=== PATIENT | female | born 1970 | race Caucasian/White ===

== ENCOUNTER → 2017-08-08 | Outpatient (CLI) | payer BC ==
--- NOTE | 2017-08-11 10:03 | MM ---
Reason for exam: screening (asymptomatic). Last mammogram was performed 11 years and 3 months ago. History: Family history of breast cancer in mother at age 38 and premenopausal breast cancer in grandmother at age 50. Benign excisional biopsy of the left breast, June 20, 2006. Excisional biopsy of the right breast. Physical Findings: A clinical breast exam by your physician is recommended on an annual basis and results should be correlated with mammographic findings. MG 3D Screening Mammo W/Cad Bilateral CC and MLO view(s) were taken. Prior study comparison: May 13, 2006, CAD bilateral diagnostic mammogram. There are scattered fibroglandular densities. There is no discrete abnormality. No significant changes when compared with prior studies. ASSESSMENT: Negative, BI-RAD 1 RECOMMENDATION: Routine screening mammogram of both breasts in 1 year.
== END | disposition home or self-care (01) ==
LOC: RADMAMWWP 16:32
PROVIDERS: ATTEND Family Medicine
DX: Z12.31 Encounter for screening mammogram for malignant neoplasm of breast (principal)
CPT/HCPCS: 77063; 77067

== ENCOUNTER → 2020-03-09 | Outpatient (CLI) | payer BC | END | disposition home or self-care (01) | LOC: LABWHC1 15:00 | PROVIDERS: ATTEND Emergency Medicine | DX: Z20.828 Contact with and (suspected) exposure to other viral communicable diseases (principal) | CPT/HCPCS: U0003; C9803 ==

== ENCOUNTER → 2020-10-18 | Outpatient (CLI) | payer BC, OTHER ==
--- NOTE | 2020-10-18 19:03 | XR ---
Lumbar spine HISTORY: Trauma and pain 3 views lumbar spine Lumbar vertebral bodies show preserved height, alignment, and bone mineralization is reduced. Calcifi ed gallstones are suspected in the right upper quadrant. Sclerosis is present in the posterior elemen ts consistent with facet arthropathy. Loss of disc height at intervertebral levels is noted and there is vacuum phenomenon present at L1-2, T12-L1. There is multilevel spondylosis. Atherosclerotic vascu lar calcifications present in the aorta iliac distribution. There is a slight spinal curvature. IMPRESSION: Degenerative disc disease, facet arthropathy, osteopenia. Cholelithiasis.
--- NOTE | 2020-10-18 19:05 | XR ---
Right femur and AP pelvis and right hip HISTORY: Trauma and pain 3 views of the pelvis and right hip, frontal lateral views of the right femur on 4 images Bone mineralization, joint spaces and alignment are maintained IMPRESSION: No fracture or dislocation.
== END | disposition home or self-care (01) ==
LOC: RADXRMAIN 18:09
PROVIDERS: ATTEND Emergency Medicine
DX: M51.36 Other intervertebral disc degeneration, lumbar region (principal); M12.88 Other specific arthropathies, not elsewhere classified, other specified site; K80.20 Calculus of gallbladder without cholecystitis without obstruction
CPT/HCPCS: 72100; 73502

== ENCOUNTER → 2020-10-20 | Outpatient (CLI) | payer OTHER ==
--- NOTE | 2020-10-20 09:57 | CT ---
EXAMINATION TYPE: CT brain annieine wo con DATE OF EXAM: 10/20/2020 COMPARISON: None HISTORY: Fall, neck stiffness and HERNANDEZ CT DLP: 1706.8 mGycm, Automated exposure control for dose reduction was used. CONTRAST: None CT of the brain is performed utilizing 3 mm thick sections through the posterior fossa and 3 mm thick sections through the remaining calvarium. Study is performed within 24 hours of arrival to the hospital. No abnormal hyperdensity is present to suggest an acute intracranial hemorrhage. No mass lesion is evident. No acute infarcts are evident. Ventricles and sulci are appropriate for the patient age. Paranasal sinuses and mastoid air cells within the dyona-wf-stdu are clear. IMPRESSIONS: 1. Normal CT brain. CT cervical spine. COMPARISON: None CT of the cervical spine is performed in the axial plane at 2 mm thick sections. Reconstructed image s in the coronal, and sagittal plane are reviewed on the computer. No acute fractures are evident. Vertebral body alignment is straightened. Disc heights are preserved. Vertebral body heights are preserved. No spinal canal stenosis is evident. No neural foraminal stenosis is evident. IMPRESSIONS: 1. Normal CT cervical spine.
--- NOTE | 2020-10-20 10:12 | XR ---
EXAMINATION TYPE: XR thoracic spine complete DATE OF EXAM: 10/20/2020 CLINICAL HISTORY: Fall with mid back pain. TECHNIQUE: Frontal, lateral, and swimmer's view of thoracic spine are obtained. COMPARISON: None. FINDINGS: Mild S-shaped curvature of the thoracolumbar spine. Vertebral body heights and disc space h eights are preserved. Visualized ribs are unremarkable. Multilevel endplate sclerosis and osteophyt osis is noted. IMPRESSION: No acute fracture or dislocation is seen in the thoracic spine. Multilevel disc disease c hanges of the thoracic spine. Mild S-shaped curvature of the thoracolumbar spine.
== END | disposition home or self-care (01) ==
LOC: RADCTMAIN 09:22
PROVIDERS: ATTEND Emergency Medicine
DX: S13.4XXD Sprain of ligaments of cervical spine, subsequent encounter (principal); S23.3XXD Sprain of ligaments of thoracic spine, subsequent encounter; M43.8X5 Other specified deforming dorsopathies, thoracolumbar region; W01.0XXD Fall on same level from slipping, tripping and stumbling without subsequent striking against object, subsequent encounter
CPT/HCPCS: 70450; 72072; 72125

== ENCOUNTER 2021-01-01 07:21 | Day surgery (SDC) | payer BC ==
[2020-12-27 12:58] VITALS: BMI 30.7
[~2021-01-01 07:21] MED LIST: ACETAMINOPHEN TAB 500 MG TAB PO PRN; DEXAMETHASONE SOD PHOSPHATE 4 MG/ML 1 ML VIAL IV ONE; HEPARIN SODIUM,PORCINE/PF 5,000 UNIT/0.5 ML SYRINGE SQ PRN; LACTATED RINGERS 1,000 ML IV SCH; ONDANSETRON 4 MG/2 ML VIAL IVP ONE
[2021-01-01] MEDS ORDERED: LIDOCAINE 1% (10MG/ML) FOR IV START INTRADERMA ONE (08:13)
--- NOTE | 2021-01-01 08:37 | P.GSHP ---
History of Present Illness H&P Date: 01/01/21 Chief Complaint: Right upper quadrant pain Is a 50-year-old female who presents today for laparoscopically cystectomy. Patient liquids were quadrant pain. Choledocholithiasis. Past Medical History Past Medical History: Osteoarthritis (OA) Additional Past Medical History / Comment(s): herniated discs with back pain, states gall stones. History of Any Multi-Drug Resistant Organisms: None Reported Past Surgical History: Breast Surgery, Section, Orthopedic Surgery Additional Past Surgical History / Comment(s): VEIN STRIPPING,EXPLORATORY LAPAROTOMY,CARPAL TUNNEL RELEASE-RIGHT WRIST, RIGHT KNEE ARTHROSCOPY, SALVATORE BREAST TUMORS. Past Anesthesia/Blood Transfusion Reactions: No Reported Reaction Past Psychological History: Anxiety Smoking Status: Current every day smoker, Heavy tobacco smoker Past Alcohol Use History: None Reported Additional Past Alcohol Use History / Comment(s): SMOKES 1 1/2 PPD, STARTED SMOKING AGE 11 Past Drug Use History: None Reported - Past Family History Mother Family Medical History: Cancer Additional Family Medical History / Comment(s): BREAST CANCER Sister(s) Family Medical History: Cancer Additional Family Medical History / Comment(s): BREAST CANCER Father Family Medical History: Cancer Additional Family Medical History / Comment(s): PANCREATIC CANCER / LUNG Medications and Allergies Home Medications Medication Instructions Recorded Confirmed Type Amitriptyline HCl [Elavil] 20 mg PO HS 12/27/20 12/27/20 History DULoxetine HCL [Cymbalta] 60 mg PO HS 12/27/20 12/27/20 History Lisdexamfetamine Dimesylate 60 mg PO QAM 12/27/20 01/01/21 History [Vyvanse] Melatonin 10 mg PO DAILY 12/27/20 01/01/21 History Pramipexole [Mirapex] 0.25 mg PO HS 12/27/20 12/27/20 History Pregabalin [Lyrica] 150 mg PO BID 12/27/20 12/27/20 History Rosuvastatin [Crestor] 10 mg PO HS 12/27/20 12/27/20 History Topiramate [Topamax] 50 mg PO HS 12/27/20 12/27/20 History Vitamin B-12 (Unknown Dose) 1 tab PO DAILY 12/27/20 History Allergies Allergy/AdvReac Type Severity Reaction Status Date / Time No Known Allergies Allergy Verified 01/01/21 07:36 Surgical - Exam Vital Signs Temp Pulse Resp BP Pulse Ox 97.3 F L 68 16 115/63 99 01/01/21 07:40 01/01/21 07:40 01/01/21 07:40 01/01/21 07:40 01/01/21 07:40 - General well developed, well nourished, no distress - Eyes PERRL - ENT normal pinna - Neck no masses - Respiratory normal expansion - Cardiovascular Rhythm: regular - Abdomen Abdomen: soft, non tender Assessment and Plan Assessment: Right quadrant pain Cholelithiasis We'll perform laparoscopic cholecystectomy
[2021-01-01] MEDS ORDERED: NEOSTIGMINE 1 MG/ML 10 ML VIAL ONE (08:47)
[2021-01-01] MEDS ORDERED: GLYCOPYRROLATE 0.2 MG/ML 2 ML VIAL ONE (08:47)
[2021-01-01] MEDS ORDERED: SUCCINYLCHOLINE CHLORIDE 100 MG/5 ML SYR IV ONE (08:47)
[2021-01-01] MEDS ORDERED: ROCURONIUM 10 MG/ML (5 ML VIAL) IV ONE (08:47)
[2021-01-01] MEDS ORDERED: fentaNYL (PF) 50 MCG/ML 2 ML AMP ONE (08:47)
[2021-01-01] MEDS ORDERED: PROPOFOL 10 MG/ML 20 ML VIAL IV ONE (08:47)
[2021-01-01] MEDS ORDERED: MIDAZOLAM 2 MG/2 ML VIAL ONE (08:47)
[2021-01-01] MEDS ORDERED: BUPIVACAINE (PF) 0.5% 30 ML VIAL SQ ONE (08:56)
[2021-01-01] MEDS ORDERED: LACTATED RINGERS 1,000 ML IV ONE (09:32)
--- NOTE | 2021-01-01 09:40 | P.OP ---
Date of Procedure: 01/01/21 Preoperative Diagnosis: Cholelithiasis Postoperative Diagnosis: Cholelithiasis Procedure(s) Performed: Laparoscopic cholecystectomy Anesthesia: ELIER Surgeon: Jesse Kebede Pathology: other (Gallbladder) Condition: stable Disposition: PACU Description of Procedure: The patient was placed on the operating table. The patient received a general endotracheal tube anesthesia. The patients abdomen was prepped and draped in the usual sterile fashion. Through an infraumbilical stab incision, the fascia of the anterior abdominal wall was grasped with a pair of Kochers and then the Veress needle was placed in the peritoneal cavity. Position of the Veress needle was confirmed with positive drop test. The abdomen was then insufflated. After adequate insufflation, the 10 mm trocar was placed in the peritoneal cavity. Following this the laparoscope was placed in the peritoneal cavity. The patient was placed in the head-up, right side up position and then a 5 mm trocar was placed in the right lateral and right subcostal position under direct visualization. A 8 mm trocar was placed in the epigastric position. The gallbladder was grasped in the fundus and infundibulum. Traction on the gallbladder was placed in the lateral and the cephalad positions. The triangle of Calot was visualized.. The cystic duct was bluntly dissected until the union of the cystic duct and common bile duct was seen. A critical view of safety was achieved. The cystic duct was then di vided and sealed with the Harmonic scissors. A PDS Endoloop was then placed throughout the cystic duct stump. The cystic artery divided and sealed with the Harmonic scissors. The gallbladder was then removed from the liver bed using Harmonic scissors. The gallbladder was then extracted through the epigastric port site. Operative field was checked for any bleeding spots and Harmonic scissors was used to coagulate the liver bed. The abdomen was irrigated. The trocars were removed. The skin was closed using interrupted 3-0 Vicryl suture. Dermabond dressing were applied. The patient tolerated the procedure well.
[2021-01-01 09:48] VITALS: TEMP 97.2
[2021-01-01] MEDS: HYDROmorphone 0.5 MG/0.5 ML SYRINGE IVP PRN ×3 (10:11→10:39)
[2021-01-01] MEDS: fentaNYL (PF) 50 MCG/ML 2 ML AMP IVP ONE ×2 (10:26→10:33)
[2021-01-01 10:50] VITALS: RESP 16
[2021-01-01 11:28] VITALS: BP 129/86
[2021-01-01 12:02] VITALS: PULSE 69
== END 2021-01-01 13:53 | disposition home or self-care (01) ==
LOC: OR 07:21
PROVIDERS: ATTEND Surgery
DX: K80.10 Calculus of gallbladder with chronic cholecystitis without obstruction (principal); M19.90 Unspecified osteoarthritis, unspecified site; F41.9 Anxiety disorder, unspecified; F17.210 Nicotine dependence, cigarettes, uncomplicated; M51.25 Other intervertebral disc displacement, thoracolumbar region; Z79.899 Other long term (current) drug therapy
CPT/HCPCS: 47562; 88304; J2250; J1100; J2710; J0690; J2405; J3010; J0330; J2704; J1170; J1644

== ENCOUNTER 2021-01-03 20:15 | Inpatient (IN) | payer BC ==
[2021-01-03] MEDS ORDERED: SODIUM CHLORIDE 0.9% 1,000 ML IV STA ×2 (20:33)
[2021-01-03] MEDS ORDERED: fentaNYL (PF) 50 MCG/ML 2 ML AMP IV STA (20:34)
[2021-01-03] MEDS ORDERED: LORazepam 2 MG/ML INJ IV STA (20:35)
--- NOTE | 2021-01-03 20:37 | ED ---
Abdominal Pain HPI - General Chief Complaint: Abdominal Pain Stated Complaint: ABD Pain Time Seen by Provider: 01/03/21 20:27 Source: patient, EMS, RN notes reviewed, old records reviewed Mode of arrival: EMS - History of Present Illness Initial Comments: 50-year-old female who presents by EMS with complaints of severe sharp right upper quadrant pain it radiates to her shoulder and into her chest. She states she had her all U2 days ago the pain started slightly yesterday but was very bad today and got progressively worse. It gets worse with movement and deep breathing she denies any fevers chills nausea vomiting sweats or other symptoms she was brought in by EMS and given a total of 10 mg of morphine the patient states she had no relief. MD Complaint: abdominal pain, other - Related Data Home Medications Medication Instructions Recorded Confirmed Amitriptyline HCl [Elavil] 20 mg PO HS 12/27/20 01/03/21 DULoxetine HCL [Cymbalta] 60 mg PO HS 12/27/20 01/03/21 Lisdexamfetamine Dimesylate 60 mg PO DAILY 12/27/20 01/03/21 [Vyvanse] Melatonin 10 mg PO HS PRN 12/27/20 01/03/21 Pramipexole [Mirapex] 0.25 mg PO HS 12/27/20 01/03/21 Pregabalin [Lyrica] 150 mg PO BID 12/27/20 01/03/21 Rosuvastatin [Crestor] 10 mg PO HS 12/27/20 01/03/21 Topiramate [Topamax] 150 mg PO HS 12/27/20 01/03/21 Previous Rx's Medication Instructions Recorded Acetaminophen Tab [Tylenol] 650 mg PO Q6H #30 tab 01/01/21 Docusate [Colace] 100 mg PO BID #20 capsule 01/01/21 Ibuprofen [Motrin] 600 mg PO Q6HR PRN #40 tab 01/01/21 oxyCODONE HCL [OxyIR] 5 mg PO Q6H PRN 3 Days #10 tab 01/01/21 Allergies Allergy/AdvReac Type Severity Reaction Status Date / Time No Known Allergies Allergy Verified 01/03/21 21:28 Review of Systems ROS Statement: Those systems with pertinent positive or pertinent negative responses have been documented in the HPI. ROS Other: All systems not noted in ROS Statement are negative. Past Medical History Past Medical History: Osteoarthritis (OA) Additional Past Medical History / Comment(s): herniated discs with back pain, states gall stones. History of Any Multi-Drug Resistant Organisms: None Reported Past Surgical History: Breast Surgery, Section, Cholecystectomy, Orthopedic Surgery Additional Past Surgical History / Comment(s): VEIN STRIPPING,EXPLORATORY LAPAROTOMY,CARPAL TUNNEL RELEASE-RIGHT WRIST, RIGHT KNEE ARTHROSCOPY, SALVATORE BREAST TUMORS. Past Anesthesia/Blood Transfusion Reactions: No Reported Reaction Past Psychological History: Anxiety Smoking Status: Current every day smoker, Heavy tobacco smoker Past Alcohol Use History: None Reported Past Drug Use History: None Reported - Past Family History Mother Family Medical History: Cancer Additional Family Medical History / Comment(s): BREAST CANCER Sister(s) Family Medical History: Cancer Additional Family Medical History / Comment(s): BREAST CANCER Father Family Medical History: Cancer Additional Family Medical History / Comment(s): PANCREATIC CANCER / LUNG General Exam - General Exam Comments Initial Comments: Well-developed obese female who is awake alert oriented 3 General appearance: alert, anxious, in distress Head exam: Present: atraumatic, normocephalic, normal inspection Eye exam: Present: normal appearance, PERRL, EOMI. Absent: scleral icterus, conjunctival injection, periorbital swelling ENT exam: Present: mucous membranes dry Neck exam: Present: normal inspection. Absent: tenderness, meningismus, lymphadenopathy Respiratory exam: Present: normal lung sounds bilaterally, chest wall tenderness, other (Tachypnea). Absent: respiratory distress, wheezes, rales, rhonchi, stridor Cardiovascular Exam: Present: regular rate, normal rhythm, normal heart sounds. Absent: systolic murmur, diastolic murmur, rubs, gallop, clicks GI/Abdominal exam: Present: soft, distended, tenderness, normal bowel sounds, other (Voluntary guarding). Absent: guarding, rebound, rigid, bruit, pulsatile mass Rectal exam: Present: deferred Extremities exam: Present: normal inspection, full ROM, normal capillary refill. Absent: tenderness, pedal edema, joint swelling, calf tenderness Back exam: Present: normal inspection Neurological exam: Present: alert, oriented X3, CN II-XII intact Psychiatric exam: Present: normal affect, anxious Skin exam: Present: warm, dry, intact, normal color. Absent: rash Course Vital Signs 01/03/21 01/03/21 01/03/21 20:17 20:50 21:56 Temperature 99.0 F Pulse Rate 76 77 71 Respiratory 26 H 20 20 Rate Blood Pressure 116/72 114/71 114/71 O2 Sat by Pulse 96 97 95 Oximetry Medical Decision Making - Medical Decision Making Patient did get some mild relief from her pain thus far. I did discuss the findings with patient family members as well as with Nenita Clinton covering for Dr. Aponte. Patient be admitted for treatment of bilateral lower lobe pneumonia Dr. Perea will be consulted. - Lab Data Result diagrams: 01/03/21 20:36 01/03/21 20:36 Lab Results 01/03/21 01/03/21 01/03/21 Range/Units 20:36 20:36 20:36 WBC 12.2 H (3.8-10.6) k/uL RBC 3.61 L (3.80-5.40) m/uL Hgb 11.8 (11.4-16.0) gm/dL Hct 36.1 (34.0-46.0) % MCV 100.0 (80.0-100.0) fL MCH 32.8 (25.0-35.0) pg MCHC 32.7 (31.0-37.0) g/dL RDW 13.0 (11.5-15.5) % Plt Count 187 (150-450) k/uL MPV 7.3 Neutrophils % 83 % Lymphocytes % 10 % Monocytes % 5 % Eosinophils % 1 % Basophils % 0 % Neutrophils # 10.1 H (1.3-7.7) k/uL Lymphocytes # 1.2 (1.0-4.8) k/uL Monocytes # 0.6 (0-1.0) k/uL Eosinophils # 0.1 (0-0.7) k/uL Basophils # 0.0 (0-0.2) k/uL PT 9.4 (9.0-12.0) sec INR 0.9 (<1.2) APTT 24.2 (22.0-30.0) sec Sodium 133 L (137-145) mmol/L Potassium 4.0 (3.5-5.1) mmol/L Chloride 106 (98-107) mmol/L Carbon Dioxide 21 L (22-30) mmol/L Anion Gap 6 mmol/L BUN 11 (7-17) mg/dL Creatinine 0.72 (0.52-1.04) mg/dL Est GFR (CKD-EPI)AfAm >90 (>60 ml/min/1.73 sqM) Est GFR (CKD-EPI)NonAf >90 (>60 ml/min/1.73 sqM) Glucose 114 H (74-99) mg/dL Plasma Lactic Acid Jacob (0.7-2.0) mmol/L Calcium 8.4 (8.4-10.2) mg/dL Total Bilirubin 0.6 (0.2-1.3) mg/dL AST 46 H (14-36) U/L ALT 56 H (4-34) U/L Alkaline Phosphatase 107 (38-126) U/L Creatine Kinase 73 (30-135) U/L Troponin I (0.000-0.034) ng/mL Total Protein 5.7 L (6.3-8.2) g/dL Albumin 3.4 L (3.5-5.0) g/dL Amylase 40 (30-110) U/L Lipase 44 (23-300) U/L 01/03/21 01/03/21 Range/Units 20:36 20:36 WBC (3.8-10.6) k/uL RBC (3.80-5.40) m/uL Hgb (11.4-16.0) gm/dL Hct (34.0-46.0) % MCV (80.0-100.0) fL MCH (25.0-35.0) pg MCHC (31.0-37.0) g/dL RDW (11.5-15.5) % Plt Count (150-450) k/uL MPV Neutrophils % % Lymphocytes % % Monocytes % % Eosinophils % % Basophils % % Neutrophils # (1.3-7.7) k/uL Lymphocytes # (1.0-4.8) k/uL Monocytes # (0-1.0) k/uL Eosinophils # (0-0.7) k/uL Basophils # (0-0.2) k/uL PT (9.0-12.0) sec INR (<1.2) APTT (22.0-30.0) sec Sodium (137-145) mmol/L Potassium (3.5-5.1) mmol/L Chloride (98-107) mmol/L Carbon Dioxide (22-30) mmol/L Anion Gap mmol/L BUN (7-17) mg/dL Creatinine (0.52-1.04) mg/dL Est GFR (CKD-EPI)AfAm (>60 ml/min/1.73 sqM) Est GFR (CKD-EPI)NonAf (>60 ml/min/1.73 sqM) Glucose (74-99) mg/dL Plasma Lactic Acid Jacob 1.5 (0.7-2.0) mmol/L Calcium (8.4-10.2) mg/dL Total Bilirubin (0.2-1.3) mg/dL AST (14-36) U/L ALT (4-34) U/L Alkaline Phosphatase (38-126) U/L Creatine Kinase (30-135) U/L Troponin I <0.012 (0.000-0.034) ng/mL Total Protein (6.3-8.2) g/dL Albumin (3.5-5.0) g/dL Amylase (30-110) U/L Lipase (23-300) U/L - EKG Data -: EKG Interpreted by Me EKG shows normal: sinus rhythm EKG Comments: Sinus rhythm a 77 appear 124 QRS 78 QT since QTC 380/439 low-voltage noted no acute ST-T wave changes - Radiology Data Radiology results: report reviewed (Imaging reviewed no evidence of any obst ruction evidence of bilateral lower lobe infiltrates.), image reviewed Disposition Clinical Impression: Bilateral pneumonia, Abdominal pain, Chest pain, Recurrent upper abdominal pain with history of cholecystectomy, Febrile illness, acute Disposition: ADMITTED IP TO THIS [facility] Condition: Fair Referrals: Jillian Torres DO [Primary Care Provider] - 1-2 days
[2021-01-03 20:48] LABS: Basophils % (A) 0 %; Eosinophils # (A) 0.1 k/uL (0-0.7); Eosinophils % (A) 1 %; HCT 36.1 % (34.0-46.0); HGB 11.8 gm/dL (11.4-16.0); Lymphocytes # (A) 1.2 k/uL (1.0-4.8); Lymphocytes % (A) 10 %; MCH 32.8 pg (25.0-35.0); MCHC 32.7 g/dL (31.0-37.0); Mean Platelet Volume 7.3; Monocytes # (A) 0.6 k/uL (0-1.0); Monocytes % (A) 5 %; Neutrophils # (A) 10.1 k/uL (1.3-7.7); Neutrophils % (A) 83 %; Platelet Count 187 k/uL (150-450); RBC 3.61 m/uL (3.80-5.40); WBC 12.2 k/uL (3.8-10.6)
[2021-01-03 20:57] LABS: ALT 56 U/L (4-34); AST 46 U/L (14-36); African American GFR (CKD) >90 (>60 ml/min/1.73 sqM); Albumin 3.4 g/dL (3.5-5.0); Alkaline Phosphatase 107 U/L (38-126); Amylase 40 U/L (30-110); Anion Gap 6 mmol/L; Blood Urea Nitrogen 11 mg/dL (7-17); Calcium 8.4 mg/dL (8.4-10.2); Carbon Dioxide 21 mmol/L (22-30); Chloride 106 mmol/L (98-107); Creatine Kinase 73 U/L (30-135); Glucose 114 mg/dL (74-99); INR 0.9 (<1.2); Lipase 44 U/L (23-300); Non-African American GFR(CKD) >90 (>60 ml/min/1.73 sqM); Partial Thromboplastin Time 24.2 sec (22.0-30.0); Prothrombin Time 9.4 sec (9.0-12.0); Sodium 133 mmol/L (137-145); Total Bilirubin 0.6 mg/dL (0.2-1.3); Total Protein 5.7 g/dL (6.3-8.2)
--- NOTE | 2021-01-03 21:24 | XR ---
EXAMINATION TYPE: XR chest 2V DATE OF EXAM: 01/03/2021 COMPARISON: NONE HISTORY: Abdominal pain TECHNIQUE: 2 views FINDINGS: There is pulmonary interstitial edema. Heart size is normal. There are no hilar masses. Bon y thorax is intact. There is no pleural effusion. IMPRESSION: Moderate pulmonary interstitial infiltrate. Acute pneumonia or heart failure is possible.
--- NOTE | 2021-01-03 21:26 | XR ---
EXAMINATION TYPE: XR KUB DATE OF EXAM: 01/03/2021 COMPARISON: NONE HISTORY: Abdominal pain TECHNIQUE: Supine and upright views FINDINGS: 2 views show no sign of intestinal obstruction or pneumoperitoneum. Fecal pattern is normal . There is no evidence of abdominal mass. There are no pathologic calcifications over the kidneys. IMPRESSION: Nonacute abdomen.
--- NOTE | 2021-01-03 22:08 | CT ---
EXAMINATION TYPE: CT abdomen pelvis w con DATE OF EXAM: 01/03/2021 COMPARISON: None HISTORY: Abdominal pain, non-localized CT DLP: 1568.7 mGycm Automated exposure control for dose reduction was used. CONTRAST: Performed with IV Contrast, patient injected with 100 mL of Isovue 300. There is patchy airspace infiltrate and atelectasis at both lung bases. Heart is borderline enlarged. There is no pericardial effusion. There is no pleural effusion. Liver spleen stomach pancreas appear intact. The bile ducts are not dilated. There is small amount of fluid around the liver. Gallbladder appears absent. There is no adrenal mass. Kidneys show satisfactory contrast opacification. There is no hydronephrosi s. Ureters are not dilated. Delayed images show normal renal excretion. There is no retroperitoneal a denopathy. Bladder distends smoothly. There is no inguinal hernia. There is no evidence of a pelvic m ass. Uterus is anteverted. There is free fluid in the cul-de-sac. Appendix appears normal. There is no mesenteric edema. There is no evidence of free air. The lumbar v ertebra have normal alignment. There is no compression fracture. Posterior elements are intact. Bony pelvis is intact. The hip joints are intact. IMPRESSION: There is mild abdominal ascites. No bowel obstruction. No renal stone or obstruction. Normal appendix . Bilateral lower lobe pneumonia and atelectasis.
[2021-01-03] MEDS ORDERED: KETOROLAC 15 MG/ML 1 ML VIAL IVP STA (22:16)
[2021-01-03] MEDS ORDERED: cefTRIAXone IN SWFI 1,000 MG/10 ML SYRINGE IVP STA (22:52)
[2021-01-03] MEDS ORDERED: PNEUMONIA PROTOCOL UTILIZED 1 EACH MISC PO PRN (22:55)
[2021-01-03] MEDS ORDERED: ONDANSETRON 4 MG/2 ML VIAL IVP PRN (22:59)
[2021-01-03] MEDS ORDERED: AZITHROMYCIN 500 MG in SODIUM CHLORIDE 0.9% 250 ML IVPB ONE (23:00)
[2021-01-03] MEDS: SODIUM CHLORIDE 0.9% 1,000 ML IV SCH (23:27)
[2021-01-04 00:46] LABS: Appearance,Urine Clear (Clear); Bilirubin,Urine Negative (Negative); Blood,Urine Negative (Negative); Color,Urine Yellow; Glucose,Urine (UA) Negative (Negative); Ketones,Urine Negative (Negative); Leukocyte Esterase,Urine Negative (Negative); Nitrite,Urine Negative (Negative); PH, Urine 6.5 (5.0-8.0); Protein,Urine Negative (Negative); Specific Gravity,Urine 1.028 (1.001-1.035); Urobilinogen,Urine <2.0 mg/dL (<2.0)
[2021-01-04] MEDS: HYDROmorphone 1 MG/ML 1 ML SYRINGE IVP PRN ×4 (02:04→19:58)
[2021-01-04] MEDS ORDERED: ACETAMINOPHEN TAB 500 MG TAB PO STA (05:37)
--- NOTE | 2021-01-04 08:05 | XR ---
EXAMINATION TYPE: XR chest 1V DATE OF EXAM: 01/04/2021 COMPARISON: 01/03/2021 INDICATION: Pneumonia TECHNIQUE: Single frontal view of the chest is obtained. FINDINGS: The heart size is normal. The pulmonary vasculature is prominent. Diffuse increased lung markings are present greater at the right base. Findings are stable. IMPRESSION: 1. Stable Increased lung markings bilaterally. Correlate for pneumonia. Continued follow-up is recomm ended
[2021-01-04] MEDS: SODIUM CHLORIDE 0.9% 1,000 ML IV SCH ×2 (11:12→19:53)
[2021-01-04] MEDS: PANTOPRAZOLE 40 MG/10 ML VIAL IVP SCH ×2 (11:13→21:45)
[2021-01-04] MEDS ORDERED: bisacodyL 10 MG SUPP RECTAL STA (12:41)
--- NOTE | 2021-01-04 14:15 | P.GSCN ---
History of Present Illness Consult date: 01/04/21 History of present illness: CHIEF COMPLAINT: Epigastric abdominal pain HISTORY OF PRESENT ILLNESS: This is a 50-year-old female who recently had outpatient laparoscopic cholecystectomy this past 01/01/[address] rooney. Patient was discharged home in stable condition. Patient reports since surgery she has developed severe epigastric abdominal pain as well as chest pain, cough and shortness of breath. Patient has not had any flatus or BM since surgery. She denies any nausea or vomiting. She is a smoker. Patient does report that the pain does radiate up into her right shoulder. She had a CAT scan completed showing mild abdominal ascites. No bowel obstruction. No renal stone or obstruction. Normal appendix. Bilateral lower lobe pneumonia and atelectasis. Patient had fever of 101.3 on admission as well as a white count elevated at 12.2. Patient is been started on antibiotics. Surgical consult placed due to recent cholecystectomy. Patient seen and examined with Dr. rooney PAST MEDICAL HISTORY: See list. PAST SURGICAL HISTORY: See list. MEDICATIONS: See list. ALLERGIES: See list. SOCIAL HISTORY: No illicit drug use. REVIEW OF SYSTEMS: CONSTITUTIONAL: Denies fever or chills. HEENT: Denies blurred vision, vision changes, or eye pain. Denies hemoptysis CARDIOVASCULAR: Denies chest pain or pressure. RESPIRATORY: No shortness of breath. GASTROINTESTINAL: See HPI for pertinent findings HEMATOLOGIC: Denies bleeding disorders. GENITOURINARY: Denies any blood in urine or increased urinary frequency. SKIN: Denies pruitis. Denies rash. PHYSICAL EXAM: VITAL SIGNS: Reviewed GENERAL: Well-developed in no acute distress. HEENT: No sclera icterus. Extraocular movements grossly intact. Moist buccal mucosa. Head is atraumatic, normocephalic. No nasal drainage. ABDOMEN: Soft. Nondistended. Tenderness to palpation epigastric area. Her incision sites are clean dry and intact NEUROLOGIC: Alert and oriented. Cranial nerves II through XII grossly intact. LABORATORY DATA: WBC 12.2 hemoglobin 11.8 platelets 187 INR 0.9 sodium 133 creatinine 0.7 to lactic 1.5 total bili 0.6 AST 46 ALT 56 alk phos 107 Lipase 44 UA negative Troponin negative EKG normal sinus rhythm IMAGING: CAT scan as stated above Chest x-ray stable increased lung markings bilaterally. Correlate for pneumonia ASSESSMENT: 1. Epigastric abdominal pain that radiates into the chest and right shoulder. Patient has not had any flatus or BM. Symptoms could be related to gas pain as well as due to her cough from her pneumonia 2. Pneumonia PLAN: -No surgical intervention planned -Add Dulcolax suppository -Continue stool softener -Mylicon gas drops -Incentive spirometer ordered -Continue antibiotics for pneumonia Thank you for this consultation Physician Dam Operator note has been reviewed by physician. Signing provider agrees with the documented findings, assessment, and plan of care. Past Medical History Past Medical History: Osteoarthritis (OA) Additional Past Medical History / Comment(s): herniated discs with back pain, states gall stones. History of Any Multi-Drug Resistant Organisms: None Reported Past Surgical History: Breast Surgery, Section, Cholecystectomy, Orthopedic Surgery Additional Past Surgical History / Comment(s): VEIN STRIPPING,EXPLORATORY LAPAROTOMY,CARPAL TUNNEL RELEASE-RIGHT WRIST, RIGHT KNEE ARTHROSCOPY, SALVATORE BREAST TUMORS. Past Anesthesia/Blood Transfusion Reactions: No Reported Reaction Past Psychological History: Anxiety Smoking Status: Current every day smoker, Heavy tobacco smoker Past Alcohol Use History: None Reported Past Drug Use History: None Reported - Past Family History Mother Family Medical History: Cancer Additional Family Medical History / Comment(s): BREAST CANCER Sister(s) Family Medical History: Cancer Additional Family Medical History / Comment(s): BREAST CANCER Father Family Medical History: Cancer Additional Family Medical History / Comment(s): PANCREATIC CANCER / LUNG Medications and Allergies Home Medications Medication Instructions Recorded Confirmed Type Amitriptyline HCl [Elavil] 20 mg PO HS 12/27/20 01/03/21 History DULoxetine HCL [Cymbalta] 60 mg PO HS 12/27/20 01/03/21 History Lisdexamfetamine Dimesylate 60 mg PO DAILY 12/27/20 01/03/21 History [Vyvanse] Melatonin 10 mg PO HS PRN 12/27/20 01/03/21 History Pramipexole [Mirapex] 0.25 mg PO HS 12/27/20 01/03/21 History Pregabalin [Lyrica] 150 mg PO BID 12/27/20 01/03/21 History Rosuvastatin [Crestor] 10 mg PO HS 12/27/20 01/03/21 History Topiramate [Topamax] 150 mg PO HS 12/27/20 01/03/21 History Acetaminophen Tab [Tylenol] 650 mg PO Q6H #30 tab 01/01/21 01/03/21 Rx Docusate [Colace] 100 mg PO BID #20 capsule 01/01/21 01/03/21 Rx Ibuprofen [Motrin] 600 mg PO Q6HR PRN #40 tab 01/01/21 01/03/21 Rx oxyCODONE HCL [OxyIR] 5 mg PO Q6H PRN 3 Days #10 tab 01/01/21 01/03/21 Rx Allergies Allergy/AdvReac Type Severity Reaction Status Date / Time No Known Allergies Allergy Verified 01/03/21 21:28 Surgical - Exam Vital Signs Temp Pulse Resp BP Pulse Ox 99.0 F 76 26 H 116/72 96 01/03/21 20:17 01/03/21 20:17 01/03/21 20:17 01/03/21 20:17 01/03/21 20:17 Results - Labs 01/03/21 20:36 01/03/21 20:36 Abnormal Lab Results - Last 24 Hours (Table) 01/03/21 01/03/21 Range/Units 20:36 20:36 WBC 12.2 H (3.8-10.6) k/uL RBC 3.61 L (3.80-5.40) m/uL Neutrophils # 10.1 H (1.3-7.7) k/uL Sodium 133 L (137-145) mmol/L Carbon Dioxide 21 L (22-30) mmol/L Glucose 114 H (74-99) mg/dL AST 46 H (14-36) U/L ALT 56 H (4-34) U/L Total Protein 5.7 L (6.3-8.2) g/dL Albumin 3.4 L (3.5-5.0) g/dL Diabetes panel 01/03/21 Range/Units 20:36 Sodium 133 L (137-145) mmol/L Potassium 4.0 (3.5-5.1) mmol/L Chloride 106 (98-107) mmol/L Carbon Dioxide 21 L (22-30) mmol/L BUN 11 (7-17) mg/dL Creatinine 0.72 (0.52-1.04) mg/dL Glucose 114 H (74-99) mg/dL Calcium 8.4 (8.4-10.2) mg/dL AST 46 H (14-36) U/L ALT 56 H (4-34) U/L Alkaline Phosphatase 107 (38-126) U/L Total Protein 5.7 L (6.3-8.2) g/dL Albumin 3.4 L (3.5-5.0) g/dL Calcium panel 01/03/21 Range/Units 20:36 Calcium 8.4 (8.4-10.2) mg/dL Albumin 3.4 L (3.5-5.0) g/dL Pituitary panel 01/03/21 Range/Units 20:36 Sodium 133 L (137-145) mmol/L Potassium 4.0 (3.5-5.1) mmol/L Chloride 106 (98-107) mmol/L Carbon Dioxide 21 L (22-30) mmol/L BUN 11 (7-17) mg/dL Creatinine 0.72 (0.52-1.04) mg/dL Glucose 114 H (74-99) mg/dL Calcium 8.4 (8.4-10.2) mg/dL Adrenal panel 01/03/21 Range/Units 20:36 Sodium 133 L (137-145) mmol/L Potassium 4.0 (3.5-5.1) mmol/L Chloride 106 (98-107) mmol/L Carbon Dioxide 21 L (22-30) mmol/L BUN 11 (7-17) mg/dL Creatinine 0.72 (0.52-1.04) mg/dL Glucose 114 H (74-99) mg/dL Calcium 8.4 (8.4-10.2) mg/dL Total Bilirubin 0.6 (0.2-1.3) mg/dL AST 46 H (14-36) U/L ALT 56 H (4-34) U/L Alkaline Phosphatase 107 (38-126) U/L Total Protein 5.7 L (6.3-8.2) g/dL Albumin 3.4 L (3.5-5.0) g/dL
[2021-01-04] MEDS ORDERED: IBUPROFEN 600 MG TAB PO PRN (15:01)
[2021-01-04] MEDS ORDERED: PRAMIPEXOLE 0.25 MG TAB PO SCH (15:01)
[2021-01-04] MEDS ORDERED: MELATONIN 5 MG TABLET PO PRN (15:01)
[2021-01-04] MEDS ORDERED: PRAMIPEXOLE 0.25 MG TAB PO STA (15:56)
[2021-01-04] MEDS ORDERED: PREGABALIN 75 MG CAP PO STA (15:57)
[2021-01-04] MEDS: SIMETHICONE 40 MG/0.6 ML DROPS 2,000 MG/30 ML BOTTLE PO SCH ×3 (16:17→23:15)
[2021-01-04] MEDS: HEPARIN SODIUM,PORCINE/PF 5,000 UNIT/0.5 ML SYRINGE SQ SCH (16:18)
[2021-01-04] MEDS: ACETAMINOPHEN TAB 325 MG TAB PO SCH ×2 (16:54→21:51)
[2021-01-04] MEDS: KETOROLAC 15 MG/ML 1 ML VIAL IVP SCH (19:57)
[2021-01-04] MEDS: TOPIRAMATE 100 MG TAB PO SCH (21:48)
[2021-01-04] MEDS: ATORVASTATIN 20 MG TAB PO SCH (21:50)
[2021-01-04] MEDS: PREGABALIN 75 MG CAP PO SCH (21:50)
[2021-01-04] MEDS: DULoxetine HCL 60 MG CAPSULE.DR PO SCH (21:51)
[2021-01-04] MEDS: PRAMIPEXOLE 0.25 MG TAB PO SCH (21:51)
[2021-01-04] MEDS: DOCUSATE 100 MG CAP PO SCH (21:51)
--- NOTE | 2021-01-04 22:04 | P.HPIM ---
History of Present Illness H&P Date: 01/04/21 Chief Complaint: Right upper quadrant abdominal pain. Patient is a 50-year-old female with a known history of osteoarthritis, chronic back pain with herniated disc, anxiety, heavy tobacco smoker and chronic pain, restless leg syndrome and other multiple medical problems who recently had cholecystectomy on 01/01/2021. Patient states that she has been having sharp pain right lower chest and in the epigastric region radiating to her shoulder and her chest. Patient states that her symptoms began after having surgery. And for the past 2 days progressively getting worse. Gets worse with movement and deep breathing. Patient is unable to take deep breaths due to pain and is getting up. Denies any fever or chills. Patient states that she was sweating at home. On admission T-max was 101.3. Denies any complaints of headache or dizziness or lightheadedness. No chest pain. No neck stiffness. Denies any leg swelling. Denied any discomfort at the surgical site. Chest x-ray showed moderate pulmonary interstitial infiltrate. Acute pneumonia or heart failure is possible. KUB x-ray showed nonacute abdomen. CT of the abdomen pelvis showed there is mild abdominal ascites. No bowel obstruction. No renal stone or obstruction. Normal appendix. Bilateral lower lobe pneumonia and atelectasis. Laboratory data showed WBC 12.2 hemoglobin 11.8 and platelets 187 Sodium 133 potassium 4.0 chloride 106 bicarb is 21 BUN 11 and creatinine 0.72 AST 46 ALT 56 alk phos 107 troponin x1 - and lipase is 44 Urinalysis is negative for infection COVID-19 PCR not detected. Review of Systems Constitutional: Patient does have subjective fevers and sweating. Generalized weakness and malaise.. Abdomen: Patient denied nausea vomiting and diarrhea and abdominal pain. Cardiovascular: Patient denies any chest pain or short of breath no palpi tations. Respiratory: Patient does have cough without sputum production. Pleuritic chest pain. Minimal shortness of breath. Neurologic: Patient denied any numbness or tingling headache. Musculoskeletal: Patient denies any complaints of joint swelling or deformity. Skin: Negative Psychiatric: Negative Endocrine: No heat or cold intolerance. No recent weight gain. Genitourinary: No dysuria or hematuria. All other 14 point ROS negative except the above Past Medical History Past Medical History: Osteoarthritis (OA) Additional Past Medical History / Comment(s): herniated discs with back pain, states gall stones. History of Any Multi-Drug Resistant Organisms: None Reported Past Surgical History: Breast Surgery, Section, Cholecystectomy, Orthopedic Surgery Additional Past Surgical History / Comment(s): VEIN STRIPPING,EXPLORATORY LAPAROTOMY,CARPAL TUNNEL RELEASE-RIGHT WRIST, RIGHT KNEE ARTHROSCOPY, SALVATORE BREAST TUMORS. Past Anesthesia/Blood Transfusion Reactions: No Reported Reaction Past Psychological History: Anxiety Smoking Status: Current every day smoker, Heavy tobacco smoker Past Alcohol Use History: None Reported Past Drug Use History: None Reported - Past Family History Mother Family Medical History: Cancer Additional Family Medical History / Comment(s): BREAST CANCER Sister(s) Family Medical History: Cancer Additional Family Medical History / Comment(s): BREAST CANCER Father Family Medical History: Cancer Additional Family Medical History / Comment(s): PANCREATIC CANCER / LUNG Medications and Allergies Home Medications Medication Instructions Recorded Confirmed Type Amitriptyline HCl [Elavil] 20 mg PO HS 12/27/20 01/03/21 History DULoxetine HCL [Cymbalta] 60 mg PO HS 12/27/20 01/03/21 History Lisdexamfetamine Dimesylate 60 mg PO DAILY 12/27/20 01/03/21 History [Vyvanse] Melatonin 10 mg PO HS PRN 12/27/20 01/03/21 History Pramipexole [Mirapex] 0.25 mg PO HS 12/27/20 01/03/21 History Pregabalin [Lyrica] 150 mg PO BID 12/27/20 01/03/21 History Rosuvastatin [Crestor] 10 mg PO HS 12/27/20 01/03/21 History Topiramate [Topamax] 150 mg PO HS 12/27/20 01/03/21 History Acetaminophen Tab [Tylenol] 650 mg PO Q6H #30 tab 01/01/21 01/03/21 Rx Docusate [Colace] 100 mg PO BID #20 capsule 01/01/21 01/03/21 Rx Ibuprofen [Motrin] 600 mg PO Q6HR PRN #40 tab 01/01/21 01/03/21 Rx oxyCODONE HCL [OxyIR] 5 mg PO Q6H PRN 3 Days #10 tab 01/01/21 01/03/21 Rx Allergies Allergy/AdvReac Type Severity Reaction Status Date / Time No Known Allergies Allergy Verified 01/03/21 21:28 Physical Exam Vitals: Vital Signs Temp Pulse Resp BP Pulse Ox 01/04/21 11:14 99.2 F 82 16 97/64 100 01/04/21 07:11 99.1 F 01/04/21 05:59 89 20 110/60 98 01/04/21 05:00 101.3 F H 01/04/21 02:02 78 20 110/77 95 01/03/21 23:27 73 20 108/82 96 01/03/21 22:51 20 01/03/21 21:56 71 20 114/71 95 01/03/21 20:50 77 20 114/71 97 01/03/21 20:17 99.0 F 76 26 H 116/72 96 Intake and Output 01/03/21 01/04/21 01/04/21 22:59 06:59 14:59 Other: Weight 92.079 kg PHYSICAL EXAMINATION: Patient is lying in the bed comfortably, no acute distress, awake alert and oriented. anxious. HEENT: Normocephalic. Neck is supple. Pupils reactive. Nostrils clear. Oral cavi ty is moist. Neck reveals no JVD, carotid bruits, or thyromegaly. CHEST EXAMINATION: Trachea is central. Symmetrical expansion. Right basilar crackles. Left basilar diminished sounds. No wheezing or rhonchi. CARDIAC: Normal S1, S2 with no gallops. No murmurs ABDOMEN: Soft. Bowel sounds normal. No organomegaly. No abdominal bruits. Extremities: reveal no edema. No clubbing or cyanosis Neurologically awake, alert, oriented x3 with well-coordinated movements. No focal deficits noted Skin: No rash or skin lesions. Psychiatric: Coperative. Nonsuicidal Musculoskeletal: No joint swelling or deformity. Normal range of motion. Results CBC & Chem 7: 01/03/21 20:36 01/03/21 20:36 Labs: Abnormal Lab Results - Last 24 Hours (Table) 01/03/21 01/03/21 Range/Units 20:36 20:36 WBC 12.2 H (3.8-10.6) k/uL RBC 3.61 L (3.80-5.40) m/uL Neutrophils # 10.1 H (1.3-7.7) k/uL Sodium 133 L (137-145) mmol/L Carbon Dioxide 21 L (22-30) mmol/L Glucose 114 H (74-99) mg/dL AST 46 H (14-36) U/L ALT 56 H (4-34) U/L Total Protein 5.7 L (6.3-8.2) g/dL Albumin 3.4 L (3.5-5.0) g/dL Assessment and Plan Assessment: Bilateral lower lobe atelectasis and possible pneumonia. Abdominal pain mainly in the epigastric region radiating to the back and chest. KUB x-ray showed normal bowel gas pattern. Status post cholecystectomy on 01/01/2021. Laparoscopic. Chronic back pain and herniated disc Anxiety Restless leg syndrome Osteoarthritis Heavy tobacco smoker on daily basis DVT prophylaxis Heparin subcu Plan: Patient will be continued on antibiotics in the form of ceftriaxone and azithromycin empirically. Continue with incentive spirometry. Pain management with Toradol IV and continue with stool softeners. General surgery is board. Continue with home medications and continue to follow closely. GI and DVT prophylaxis. Smoking cessation has been counseled extensively.
[2021-01-04] MEDS: AMITRIPTYLINE HCL 10 MG TAB PO SCH (23:08)
[2021-01-04] MEDS: AZITHROMYCIN 500 MG TAB PO SCH (23:08)
[2021-01-05] MEDS: HEPARIN SODIUM,PORCINE/PF 5,000 UNIT/0.5 ML SYRINGE SQ SCH ×3 (01:03→16:10)
[2021-01-05] MEDS: KETOROLAC 15 MG/ML 1 ML VIAL IVP SCH ×4 (01:03→17:36)
[2021-01-05] MEDS: ACETAMINOPHEN TAB 325 MG TAB PO SCH ×4 (03:24→20:01)
[2021-01-05 05:52] LABS: ALT 46 U/L (4-34); AST 31 U/L (14-36); African American GFR (CKD) >90 (>60 ml/min/1.73 sqM); Albumin 2.6 g/dL (3.5-5.0); Albumin/Globulin Ratio 1.2; Alkaline Phosphatase 118 U/L (38-126); Anion Gap 5 mmol/L; Blood Urea Nitrogen 15 mg/dL (7-17); Calcium 8.1 mg/dL (8.4-10.2); Carbon Dioxide 19 mmol/L (22-30); Chloride 110 mmol/L (98-107); Globulin 2.2 g/dL; Glucose 78 mg/dL (74-99); Non-African American GFR(CKD) >90 (>60 ml/min/1.73 sqM); Potassium 3.7 mmol/L (3.5-5.1); Sodium 134 mmol/L (137-145); Total Bilirubin 0.7 mg/dL (0.2-1.3); Total Protein 4.8 g/dL (6.3-8.2)
[2021-01-05] MEDS: SODIUM CHLORIDE 0.9% 1,000 ML IV SCH ×2 (06:10→16:06)
[2021-01-05] MEDS: HYDROmorphone 1 MG/ML 1 ML SYRINGE IVP PRN (07:11)
[2021-01-05] MEDS: SIMETHICONE 40 MG/0.6 ML DROPS 2,000 MG/30 ML BOTTLE PO SCH ×4 (08:59→20:02)
[2021-01-05] MEDS: DOCUSATE 100 MG CAP PO SCH ×2 (09:03→20:02)
[2021-01-05] MEDS: PREGABALIN 75 MG CAP PO SCH ×2 (09:05→20:01)
[2021-01-05] MEDS: PANTOPRAZOLE 40 MG/10 ML VIAL IVP SCH ×2 (09:06→20:01)
[2021-01-05] MEDS: NON FORMULARY DRUG (Lisdexamfetamine Dimesylate [Vyvanse] 60 MG Capsule) PO SCH (09:18)
[2021-01-05 09:37] LABS: Basophils # (A) 0.02 X 10*3/uL (0.00-0.10); Basophils % (A) 0.2 %; Eosinophils # (A) 0.04 X 10*3/uL (0.04-0.35); Eosinophils % (A) 0.3 %; HCT 31.2 % (37.2-46.3); HGB 9.8 g/dL (12.0-15.0); Lymphocytes # (A) 1.58 X 10*3/uL (0.90-5.00); Lymphocytes % (A) 12.1 %; MCH 31.8 pg (27.0-32.0); MCHC 31.4 g/dL (32.0-37.0); MCV 101.3 fL (80.0-97.0); Mean Platelet Volume 10.9 fL (9.5-12.2); Monocytes % (A) 3.8 %; Neutrophils % (A) 83.1 %; Platelet Count 169 X 10*3/uL (140-440); RBC 3.08 X 10*6/uL (4.10-5.20); WBC 13.01 X 10*3/uL (4.50-10.00)
--- NOTE | 2021-01-05 10:55 | XR ---
EXAMINATION TYPE: XR chest 1V DATE OF EXAM: 01/05/2021 COMPARISON: 01/04/2021 INDICATION: Pneumonia TECHNIQUE: Single frontal view of the chest is obtained. FINDINGS: The heart size is normal. The pulmonary vasculature is normal. Mild infiltrate is present at the right infrahilar region. This is improved from comparison. Small no dules in amanda left lung. Mild diffuse increased lung markings are present. IMPRESSION: 1. Improving lung infiltrates. Continued follow-up is recommended
--- NOTE | 2021-01-05 13:47 | P.PN ---
Subjective Progress Note Date: 01/05/21 CHIEF COMPLAINT: Epigastric abdominal pain HISTORY OF PRESENT ILLNESS: Patient is a recent status post cholecystectomy on 01/01/2021. She presented back to the hospital with complaints of abdominal pain and chest pain radiating up into the right shoulder. She had not had been passing gas or having bowel movement after surgery. Patient is currently now having flatus. She reports some improvement in her abdominal discomfort. She denies any nausea or vomiting. She was started on clear liquid diet this morning. Afebrile. WBC is up from 12.2-13.01 hemoglobin 9.8 Per nursing staff patient is not ambulating PHYSICAL EXAM: VITAL SIGNS: Reviewed. GENERAL: Well-developed in no acute distress. HEENT: No sclera icterus. Extraocular movements grossly intact. Moist buccal mucosa. Head is atraumatic, normocephalic. ABDOMEN: Soft. Mildly distended. diffuse tenderness. Incision sites clean dry and intact NEUROLOGIC: Alert and oriented. Cranial nerves II through XII grossly intact. ASSESSMENT: 1. Epigastric abdominal pain that radiates into the chest and right shoulder. Patient is now having flatus. Symptoms could be related to gas pain as well as due to her cough from her pneumonia 2. Pneumonia 3. Leukocytosis likely due to pneumonia PLAN: -Advance diet to clear liquids -No surgical intervention planned -Continue stool softener -Consult physical therapy -Encourage patient to ambulate -Mylicon gas drops -Incentive spirometer ordered -Continue antibiotics for pneumonia Physician Family Assessment Worker note has been reviewed by physician. Signing provider agrees with the documented findings, assessment, and plan of care. Objective - Vital Signs Vital signs: Vital Signs Temp 98.6 F 01/05/21 12:46 Pulse 85 01/05/21 12:46 Resp 18 01/05/21 12:46 BP 110/70 01/05/21 12:46 Pulse Ox 94 L 01/05/21 12:46 Intake & Output 01/04/21 01/05/21 01/05/21 18:59 06:59 18:59 Intake Total 50 100 Balance 50 100 Weight 92.079 kg Intake: Oral 50 100 - Labs CBC & Chem 7: 01/05/21 05:11 01/05/21 05:11 Labs: Abnormal Lab Results - Last 24 Hours (Table) 01/05/21 01/05/21 Range/Units 05:11 05:11 WBC 13.01 H (4.50-10.00) X 10*3/uL RBC 3.08 L (4.10-5.20) X 10*6/uL Hgb 9.8 L (12.0-15.0) g/dL Hct 31.2 L (37.2-46.3) % MCV 101.3 H (80.0-97.0) fL MCHC 31.4 L (32.0-37.0) g/dL Immature Gran # 0.07 H (0.00-0.04) X 10*3/uL Neutrophils # 10.80 H (1.80-7.70) X 10*3/uL Sodium 134 L (137-145) mmol/L Chloride 110 H (98-107) mmol/L Carbon Dioxide 19 L (22-30) mmol/L Calcium 8.1 L (8.4-10.2) mg/dL ALT 46 H (4-34) U/L Total Protein 4.8 L (6.3-8.2) g/dL Albumin 2.6 L (3.5-5.0) g/dL Microbiology - Last 24 Hours (Table) 01/03/21 21:37 Blood Culture - Preliminary Blood No Growth after 24 hours 01/03/21 21:16 Blood Culture - Preliminary Blood No Growth after 24 hours
[2021-01-05] MEDS: DULoxetine HCL 60 MG CAPSULE.DR PO SCH (20:01)
[2021-01-05] MEDS: TOPIRAMATE 100 MG TAB PO SCH (20:01)
[2021-01-05] MEDS: ATORVASTATIN 20 MG TAB PO SCH (20:01)
[2021-01-05] MEDS: PRAMIPEXOLE 0.25 MG TAB PO SCH (20:02)
[2021-01-05] MEDS: AZITHROMYCIN 500 MG TAB PO SCH (20:03)
[2021-01-05] MEDS: AMITRIPTYLINE HCL 10 MG TAB PO SCH (20:03)
--- NOTE | 2021-01-05 23:30 | P.PN ---
Subjective Progress Note Date: 01/05/21 Principal diagnosis: Bilateral lower lobe atelectasis and possible pneumonia. Patient is a 50-year-old female with a known history of osteoarthritis, chronic back pain with herniated disc, anxiety, heavy tobacco smoker and chronic pain, restless leg syndrome and other multiple medical problems who recently had cholecystectomy on 01/01/2021. Patient states that she has been having sharp pain right lower chest and in the epigastric region radiating to her shoulder and her chest. Patient states that her symptoms began after having surgery. And for the past 2 days progressively getting worse. Gets worse with movement and deep breathing. Patient is unable to take deep breaths due to pain and is getting up. Denies any fever or chills. Patient states that she was sweating at home. On admission T-max was 101.3. Denies any complaints of headache or dizziness or lightheadedness. No chest pain. No neck stiffness. Denies any leg swelling. Denied any discomfort at the surgical site. Chest x-ray showed moderate pulmonary interstitial infiltrate. Acute pneumonia or heart failure is possible. KUB x-ray showed nonacute abdomen. CT of the abdomen pelvis showed there is mild abdominal ascites. No bowel obstruction. No renal stone or obstruction. Normal appendix. Bilateral lower lobe pneumonia and atelectasis. Laboratory data showed WBC 12.2 hemoglobin 11.8 and platelets 187 Sodium 133 potassium 4.0 chloride 106 bicarb is 21 BUN 11 and creatinine 0.72 AST 46 ALT 56 alk phos 107 troponin x1 - and lipase is 44 Urinalysis is negative for infection COVID-19 PCR not detected. 01/05/2021 Patient is currently sitting on the edge of bed comfortably. Right lower chest pain and shortness of breath is much improved. Patient has been afebrile. Continued on incentive spirometry. No complaints of fever or chills. Otherwise patient is able to pass flatus. No nausea vomiting or abdominal pain and diarrhea. Patient is tolerating clear liquid diet. Laboratory data showed WBC 13.01 hemoglobin 9.8 and platelets 169 Sodium 134 potassium 3.7 chloride 110 bicarb is 19 BUN 15 creatinine 0.67 and blood cultures are negative so far. Patient is being cannula antibiotics involved ceftriaxone and azithromycin. General surgery is on board. Currently on pain management. Repeat chest x-ray today showed improving lung infiltrates. Current medications reviewed. Objective - Vital Signs Vital signs: Vital Signs Temp 98.6 F 01/05/21 19:53 Pulse 80 01/05/21 19:53 Resp 16 01/05/21 19:53 BP 96/63 01/05/21 19:53 Pulse Ox 93 L 01/05/21 19:53 Intake & Output 01/05/21 01/05/21 01/06/21 06:59 18:59 06:59 Intake Total 50 100 Balance 50 100 Weight 92.079 kg Intake: Oral 50 100 Other: Voiding Method Toilet - Exam PHYSICAL EXAMINATION: Patient is lying in the bed comfortably, no acute distress, awake alert and oriented. anxious. HEENT: Normocephalic. Neck is supple. Pupils reactive. Nostrils clear. Oral cavity is moist. Neck reveals no JVD, carotid bruits, or thyromegaly. CHEST EXAMINATION: Trachea is central. Symmetrical expansion. Right basilar crackles. Left basilar diminished sounds. No wheezing or rhonchi. CARDIAC: Normal S1, S2 with no gallops. No murmurs ABDOMEN: Soft. Bowel sounds normal. No organomegaly. No abdominal bruits. Extremities: reveal no edema. No clubbing or cyanosis Neurologically awake, alert, oriented x3 with well-coordinated movements. No focal deficits noted Skin: No rash or skin lesions. Psychiatric: Coperative. Nonsuicidal Musculoskeletal: No joint swelling or deformity. Normal range of motion. - Labs CBC & Chem 7: 01/05/21 05:11 01/05/21 05:11 Labs: Abnormal Lab Results - Last 24 Hours (Table) 01/05/21 01/05/21 Range/Units 05:11 05:11 WBC 13.01 H (4.50-10.00) X 10*3/uL RBC 3.08 L (4.10-5.20) X 10*6/uL Hgb 9.8 L (12.0-15.0) g/dL Hct 31.2 L (37.2-46.3) % MCV 101.3 H (80.0-97.0) fL MCHC 31.4 L (32.0-37.0) g/dL Immature Gran # 0.07 H (0.00-0.04) X 10*3/uL Neutrophils # 10.80 H (1.80-7.70) X 10*3/uL Sodium 134 L (137-145) mmol/L Chloride 110 H (98-107) mmol/L Carbon Dioxide 19 L (22-30) mmol/L Calcium 8.1 L (8.4-10.2) mg/dL ALT 46 H (4-34) U/L Total Protein 4.8 L (6.3-8.2) g/dL Albumin 2.6 L (3.5-5.0) g/dL Microbiology - Last 24 Hours (Table) 01/03/21 21:16 Blood Culture - Preliminary Blood No Growth after 48 hours 01/03/21 21:37 Blood Culture - Preliminary Blood No Growth after 24 hours Assessment and Plan Assessment: Bilateral lower lobe atelectasis and possible pneumonia. Abdominal pain mainly in the epigastric region radiating to the back and chest. KUB x-ray showed normal bowel gas pattern. Status post cholecystectomy on 01/01/2021. Laparoscopic. Chronic back pain and herniated disc Anxiety Restless leg syndrome Osteoarthritis Heavy tobacco smoker on daily basis DVT prophylaxis Heparin subcu Plan: Patient will be continued on antibiotics in the form of ceftriaxone and azithromycin empirically. Continue with incentive spirometry. Pain management with Toradol IV and continue with stool softeners. General surgery is board. Continue with home medications and continue to follow closely. GI and DVT prophylaxis. Smoking cessation has been counseled extensively. Time with Patient: Greater than 30
[2021-01-06] MEDS: KETOROLAC 15 MG/ML 1 ML VIAL IVP SCH ×3 (00:18→13:04)
[2021-01-06] MEDS: HEPARIN SODIUM,PORCINE/PF 5,000 UNIT/0.5 ML SYRINGE SQ SCH ×3 (00:19→15:08)
[2021-01-06] MEDS: SODIUM CHLORIDE 0.9% 1,000 ML IV SCH ×2 (00:19→07:48)
[2021-01-06] MEDS: ACETAMINOPHEN TAB 325 MG TAB PO SCH ×3 (04:46→15:08)
[2021-01-06] MEDS: NON FORMULARY DRUG (Lisdexamfetamine Dimesylate [Vyvanse] 60 MG Capsule) PO SCH (06:49)
[2021-01-06] MEDS: PANTOPRAZOLE 40 MG/10 ML VIAL IVP SCH (08:18)
[2021-01-06] MEDS: DOCUSATE 100 MG CAP PO SCH (08:18)
[2021-01-06] MEDS: PREGABALIN 75 MG CAP PO SCH (08:18)
[2021-01-06] MEDS: SIMETHICONE 40 MG/0.6 ML DROPS 2,000 MG/30 ML BOTTLE PO SCH ×2 (08:18→13:04)
[2021-01-06 08:51] LABS: Basophils # (A) 0.01 X 10*3/uL (0.00-0.10); Basophils % (A) 0.1 %; Eosinophils % (A) 1.2 %; HCT 30.1 % (37.2-46.3); HGB 9.5 g/dL (12.0-15.0); Lymphocytes # (A) 0.73 X 10*3/uL (0.90-5.00); Lymphocytes % (A) 8.9 %; MCH 31.7 pg (27.0-32.0); MCHC 31.6 g/dL (32.0-37.0); MCV 100.3 fL (80.0-97.0); Mean Platelet Volume 10.1 fL (9.5-12.2); Monocytes % (A) 4.9 %; Neutrophils % (A) 84.5 %; Platelet Count 152 X 10*3/uL (140-440); RDW 12.9 % (11.5-14.5); WBC 8.17 X 10*3/uL (4.50-10.00)
[2021-01-06 13:55] LABS: African American GFR (CKD) 99.6 (60.0-200.0); Anion Gap 7.8 mmol/L (4.00-12.00); BUN/Creat Ratio 18.75 Ratio (12.00-20.00); Carbon Dioxide 20.2 mmol/L (21.6-31.8); Potassium 3.6 mmol/L (3.5-5.5)
--- NOTE | 2021-01-06 14:10 | P.PN ---
Subjective Progress Note Date: 01/06/21 CHIEF COMPLAINT: Abdominal pain following cholecystectomy HISTORY OF PRESENT ILLNESS: The patient is a 50-year-old female was readmitted to the hospital due to abdominal pain including bilateral pneumonia. Patient is status post cholecystectomy 01/01/2021. She is postop day 6. LFTs were elevated on admission. She is having bowel movements. Her abdominal pain is better. "I feel better." ROS: No reports of nausea and vomiting. No fevers or chills. No new chest pain. No productive sputum PHYSICAL EXAM: VITAL SIGNS: Reviewed CONSTITUTIONAL: Well developed and in no acute distress. EYES: Conjuctivae without sclera icterus. Extraocular movements grossly intact. HEAD, EARS, NOSE, THROAT: Moist buccal mucosa. Head is atraumatic, normocephalic. Hears conversational speech. No nasal drainage. NECK: No gross thyroidomegaly. No jugular venous distention. RESPIRATORY: Non-labored respirations and equal bilateral excursions. CARDIOVASCULAR: Regular rate. Regular rhythm. ABDOMEN: Incisions clean dry and intact. Soft. No peritonitis. MUSCULOSKELETAL: No gross deformity of the lower extremities noted. No clubbing. No cyanosis. SKIN: Good skin turgor. Well perfused. NEUROLOGIC: Cranial nerves II through XII grossly intact. No focal or lateralizing signs. PSYCH: Appropriate affect. Alert and oriented to person, place and time. CLINICAL LABS: White blood cell count normal at 8.1 down from 13.0. Hemoglobin down 11.8-9.5 with anemia ASSESSMENT: 1. Abdominal pain status post cholecystectomy 2. Anemia 3. Elevated LFTs PLAN: 1. Monitor LFTs 2. Advanced diet as tolerated. Objective - Vital Signs Vital signs: Vital Signs Temp 99.5 F 01/06/21 06:23 Pulse 74 01/06/21 06:23 Resp 15 01/06/21 06:23 BP 114/75 01/06/21 06:23 Pulse Ox 95 01/06/21 06:23 Intake & Output 01/05/21 01/06/21 01/06/21 18:59 06:59 18:59 Intake Total 100 740 Balance 100 740 Intake: Intake, IV Titration 500 Amount Sodium Chloride 0.9% 1, 450 000 ml @ 100 mls/hr IV . Q10H [facility] Rx#:[id number] cefTRIAXone 2 gm In 50 Sodium Chloride 0.9% 50 ml @ 100 mls/hr IVPB Q24H [facility] Rx#:[id number] Oral 100 240 Other: Voiding Method Toilet Toilet # Voids 1 - Labs CBC & Chem 7: 01/06/21 06:31 01/06/21 06:31 Labs: Abnormal Lab Results - Last 24 Hours (Table) 01/06/21 Range/Units 06:31 RBC 3.00 L (4.10-5.20) X 10*6/uL Hgb 9.5 L (12.0-15.0) g/dL Hct 30.1 L (37.2-46.3) % MCV 100.3 H (80.0-97.0) fL MCHC 31.6 L (32.0-37.0) g/dL Lymphocytes # 0.73 L (0.90-5.00) X 10*3/uL Microbiology - Last 24 Hours (Table) 01/03/21 21:37 Blood Culture - Preliminary Blood No Growth after 48 hours 01/03/21 21:16 Blood Culture - Preliminary Blood No Growth after 48 hours Assessment and Plan (1) Bilateral pneumonia Current Visit: Yes Status: Acute Code(s): J18.9 - PNEUMONIA, UNSPECIFIED ORGANISM SNOMED Code(s): 877890002 (2) Recurrent upper abdominal pain with history of cholecystectomy Current Visit: Yes Status: Acute Code(s): R10.10 - UPPER ABDOMINAL PAIN, UNSPECIFIED; Z90.49 - ACQUIRED ABSENCE OF OTHER SPECIFIED PARTS OF DIGESTIVE TRACT SNOMED Code(s): 134035003
[2021-01-06 15:04] VITALS: BP 100/74; PULSE 63; RESP 18; TEMP 97.5
[2021-01-06] MEDS ORDERED: PANTOPRAZOLE 40 MG TABLET PO SCH (17:30)
== END 2021-01-06 15:39 | disposition home or self-care (01) | DRG 194 ==
LOC: EC 20:15 → 4SSUR 22:55
PROVIDERS: ADMIT Hospitalist; ATTEND Hospitalist
DX: J18.9 Pneumonia, unspecified organism (principal); J98.11 Atelectasis; R18.8 Other ascites; F41.9 Anxiety disorder, unspecified; F17.200 Nicotine dependence, unspecified, uncomplicated; G25.81 Restless legs syndrome; G89.29 Other chronic pain; Z90.49 Acquired absence of other specified parts of digestive tract; Z80.0 Family history of malignant neoplasm of digestive organs; Z79.899 Other long term (current) drug therapy; Z80.3 Family history of malignant neoplasm of breast; M54.9 Dorsalgia, unspecified; R10.11 Right upper quadrant pain; G89.18 Other acute postprocedural pain; R79.89 Other specified abnormal findings of blood chemistry; M19.90 Unspecified osteoarthritis, unspecified site; D64.9 Anemia, unspecified
CPT/HCPCS: 36415; 71045; 71046; 74018; 74177; 80048; 80053; 81003; 82150; 82550; 83605; 83690; 84484; 85025; 85610; 85730; 87040; 87635; 96361; 96365; 96375; 99285

== ENCOUNTER 2021-03-15 09:41 | Day surgery (SDC) | payer BC ==
[2021-02-19 16:09] VITALS: BMI 32.1
[~2021-03-15 09:41] MED LIST changes: -ACETAMINOPHEN TAB 500 MG TAB PO PRN; -DEXAMETHASONE SOD PHOSPHATE 4 MG/ML 1 ML VIAL IV ONE; -HEPARIN SODIUM,PORCINE/PF 5,000 UNIT/0.5 ML SYRINGE SQ PRN; +LIDOCAINE 1% (10MG/ML) FOR IV START INTRADERMA PRN; -ONDANSETRON 4 MG/2 ML VIAL IVP ONE
[2021-03-15 11:02] VITALS: TEMP 97.8
[2021-03-15] MEDS ORDERED: MEPERIDINE 50 MG/ML SYRINGE IVP ONE (11:17)
[2021-03-15] MEDS ORDERED: PROPOFOL 10 MG/ML 20 ML VIAL IV ONE (11:48)
--- NOTE | 2021-03-15 11:51 | P.GSHP ---
History of Present Illness H&P Date: 03/15/21 Chief Complaint: Anemia Is a 50-year-old female who has been anemic. Her hemoglobin 79 range. She presents today for EGD colonoscopy to evaluate for GI source of bleeding. Past Medical History Past Medical History: Osteoarthritis (OA) Additional Past Medical History / Comment(s): Herniated discs with back pain, states gall stones., anemia. History of Any Multi-Drug Resistant Organisms: None Reported Past Surgical History: Breast Surgery, Section, Cholecystectomy, Orthopedic Surgery Additional Past Surgical History / Comment(s): VEIN STRIPPING,EXPLORATORY LAPAROTOMY,CARPAL TUNNEL RELEASE-RIGHT WRIST, RIGHT KNEE ARTHROSCOPY, SALVATORE BREAST TUMORS. Past Anesthesia/Blood Transfusion Reactions: No Reported Reaction Smoking Status: Current every day smoker - Past Family History Mother Family Medical History: Cancer Additional Family Medical History / Comment(s): BREAST CANCER Sister(s) Family Medical History: Cancer Additional Family Medical History / Comment(s): BREAST CANCER Father Family Medical History: Cancer Additional Family Medical History / Comment(s): PANCREATIC CANCER / LUNG Medications and Allergies Home Medications Medication Instructions Recorded Confirmed Type Amitriptyline HCl [Elavil] 20 mg PO HS 12/27/20 03/14/21 History DULoxetine HCL [Cymbalta] 60 mg PO HS 12/27/20 03/14/21 History Lisdexamfetamine Dimesylate 60 mg PO DAILY 12/27/20 03/14/21 History [Vyvanse] Pramipexole [Mirapex] 0.25 mg PO HS 12/27/20 03/14/21 History Pregabalin [Lyrica] 150 mg PO BID 12/27/20 03/14/21 History Rosuvastatin [Crestor] 10 mg PO HS 12/27/20 03/14/21 History Topiramate [Topamax] 150 mg PO HS 12/27/20 03/14/21 History Acetaminophen Tab [Tylenol] 650 mg PO Q6H #30 tab 01/01/21 03/14/21 Rx Cyanocobalamin (Vitamin B-12) 5,000 mcg PO DAILY 02/19/21 03/14/21 History [Vitamin B12] Allergies Allergy/AdvReac Type Severity Reaction Status Date / Time No Known Allergies Allergy Verified 03/15/21 10:54 Surgical - Exam Vital Signs Temp Pulse Resp BP Pulse Ox 97.8 F 68 18 113/53 97 03/15/21 10:58 03/15/21 10:58 03/15/21 10:58 03/15/21 10:58 03/15/21 10:58 - General well developed, well nourished, no distress - Eyes PERRL - ENT normal pinna - Neck no masses - Respiratory normal expansion - Cardiovascular Rhythm: regular - Abdomen Abdomen: soft, non tender Assessment and Plan Assessment: Anemia, for EGD colonoscopy
--- NOTE | 2021-03-15 12:10 | P.OP ---
Date of Procedure: 03/15/21 Preoperative Diagnosis: Anemia Postoperative Diagnosis: Antral hemorrhagic gastritis Small sliding hiatal hernia Mild esophagitis Procedure(s) Performed: EGD Colonoscopy Anesthesia: MAC Surgeon: Jesse Kebede Pathology: other (Antrum, esophagus) Condition: stable Disposition: PACU Description of Procedure: The patient's placed on the endoscopy table in the lateral position. She received IV sedation. The gastroscope placed oropharynx passed in the esophagus into the stomach. Scope was then placed through the pylorus. The first and second portion of the duodenum appeared normal. Scope was then brought back the antrum and this was inflamed. There is evidence of some hemorrhagic gastritis. This was biopsied. The scope was then retroflexed and the remainder of the stomach appeared normal. There was a small sliding hiatal hernia. The GE junction was at 40 cm The distal esophagus appeared mildly inflamed a biopsies performed. A proximal esophagus appeared normal. The scope was withdrawn for patient. Next digital rectal exam was performed with no abnormalities noted. The flexible colonoscope was then placed patient anus and passed throughout the colon. The cecum could not be seen secondary to poor bowel prep. Scope was then withdrawn. Ascending colon appeared normal. The transverse colon appeared normal. In the descending and sigmoid colon there was mild diverticulosis. Scope was then brought back the rectum this appeared normal. Scope withdrawn from patient. There is no evidence of any lower GI bleed. It was presumed that the patient's anemia because by . hemorrhagic gastritis.
[2021-03-15 12:21] VITALS: RESP 16
[2021-03-15 12:33] VITALS: BP 106/73; PULSE 59
== END 2021-03-15 12:49 | disposition home or self-care (01) ==
LOC: ORWHC2ENDO 09:41
PROVIDERS: ATTEND Surgery
DX: K29.71 Gastritis, unspecified, with bleeding (principal); K20.90 Esophagitis, unspecified without bleeding; M19.90 Unspecified osteoarthritis, unspecified site; K44.9 Diaphragmatic hernia without obstruction or gangrene; K57.30 Diverticulosis of large intestine without perforation or abscess without bleeding; D64.9 Anemia, unspecified; F17.210 Nicotine dependence, cigarettes, uncomplicated; Z90.49 Acquired absence of other specified parts of digestive tract; Z98.891 History of uterine scar from previous surgery; Z98.890 Other specified postprocedural states; Z97.2 Presence of dental prosthetic device (complete) (partial); Z80.3 Family history of malignant neoplasm of breast; Z80.1 Family history of malignant neoplasm of trachea, bronchus and lung; Z80.0 Family history of malignant neoplasm of digestive organs; Z79.899 Other long term (current) drug therapy
CPT/HCPCS: 88305; 45378; 43239; J2175; J2704

== ENCOUNTER → 2021-05-16 | Outpatient (CLI) | payer BC ==
--- NOTE | 2021-05-16 10:27 | ECHOF ---
Referral Reason:chest pain MEASUREMENTS -------- HEIGHT: 170.2 cm WEIGHT: 97.1 kg BP: RVIDd: 3.5 cm (< 3.3) IVSd: 0.7 cm (0.6 - 1.1) LVIDd: 4.6 cm (3.9 - 5.3) LVPWd: 1.0 cm (0.6 - 1.1) IVSs: 1.4 cm LVIDs: 3.1 cm LVPWs: 1.1 cm Ao Diam: 2.9 cm (2.0 - 3.7) AV Cusp: 1.8 cm (1.5 - 2.6) LA Diam: 2.9 cm (2.7 - 3.8) MV EXCURSION: 21.171 mm (> 18.000) MV EF SLOPE: 108 mm/s (70 - 150) EPSS: 0.8 cm MV E Po: 0.53 m/s MV DecT: 251 ms MV A Po: 0.72 m/s MV E/A Ratio: 0.74 RAP: 5.00 mmHg RVSP: 20.59 mmHg FINDINGS -------- Sinus rhythm. This was a technically good study. LV size, wall thickness and systolic function are normal, with an EF greater than 55%. The left chen tricular size is normal. The right ventricle is normal in size. Normal LA size by volume 22+/-6 ml/m2. The right atrial size is normal. There is mild aortic valve sclerosis. There is no evidence of aortic regurgitation. Mild mitral regurgitation is present. Mild tricuspid regurgitation present. Right ventricular systolic pressure is normal at < 35 mmHg. There is no pulmonic regurgitation present. There is no pericardial effusion. CONCLUSIONS -------- 1. LV size, wall thickness and systolic function are normal, with an EF greater than 55%. 2. The left ventricular size is normal. 3. The right ventricle is normal in size. 4. Normal LA size by volume 22+/-6 ml/m2. 5. The right atrial size is normal. 6. There is mild aortic valve sclerosis. 7. Mild mitral regurgitation is present. 8. Mild tricuspid regurgitation present. 9. There is no pericardial effusion. [employer] COUNTER MANAGER: Glory Guevara RDCS
--- NOTE | 2021-05-16 11:24 | P.STRESS ---
- Stress Test Note Stress Test Results/Findings: Exam Performed: NM stress cardiolite complete Exam Date: 05/16/21 Reason for Exam: CHEST PAIN Height: 5 ft 7 in Weight: 97.3 kg Protocol: CARDIOLITE LESLY Stage: 3 Duration of Exercise: 8:31 Resting Heart Rate: 65 Resting Blood Pressure: 131/80 Maximum Achieved Heart Rate: 148 Maximum Achieved Blood Pressure: 177/75 85% PMHR: 145 100% PMHR: 170 METS: 10.3 Technologist Comment: Stress Test Results/Findings: This is a 50-year-old female with history of hypercholesterolemia, smoking history, being evaluated for chest pains. Stress data: Baseline EKG showed sinus rhythm with normal TX interval and QRS duration. Blood pressure at rest is 130/80 with pulse rate of 65. Patient walked on the Lesly protocol for 8 minutes and 31 seconds achieving a maximal heart rate of 148 with a blood pressure of 177/75. EKGs taken during and after exercise did not reveal any changes of ischemia. Patient did not experience any chest pain. Final impression: #1. Negative stress test. #2. Patient did not experience any chest pain #3. No arrhythmias noted. #4. Patient's exercise capacity is good
--- NOTE | 2021-05-16 12:31 | NM ---
EXAMINATION TYPE: NM stress cardiolite complete DATE OF EXAM: 05/16/2021 COMPARISON: NONE HISTORY: Chest pain, palpitations, and difficulty in breathing. History of tobacco use and family his tory of heart attack in dad along with hypercholesteremia. TECHNIQUE: After the intravenous administration of 9.29 mCi Tc 99m Sestamibi - Rest images obtained 45 minutes post injection. The patient exercised using a LESLY protocol and 1 minute prior to peak exercise was injected with 24.7 mCi Tc 99m Sestamibi - Stress images obtained 10 minutes post injecti on. FINDINGS: Targeted heart rate was achieved during performance of the study. Review of stress and rest SPECT monae ges demonstrates no distinct perfusion abnormality. Gated analysis shows normal wall motion with an estimated left ventricular ejection fraction of 50 %. IMPRESSION: No scintigraphic evidence for reversible ischemia
--- NOTE | 2021-05-17 08:33 | EST ---
Stress Test Results/Findings: Exam Performed: NM stress cardiolite complete Exam Date: 05/16/21 Reason for Exam: CHEST PAIN Height: 5 ft 7 in Weight: 97.3 kg Protocol: CARDIOLITE LESLY Stage: 3 Duration of Exercise: 8:31 Resting Heart Rate: 65 Resting Blood Pressure: 131/80 Maximum Achieved Heart Rate: 148 Maximum Achieved Blood Pressure: 177/75 85% PMHR: 145 100% PMHR: 170 METS: 10.3 Technologist Comment: Stress Test Results/Findings: This is a 50-year-old female with history of hypercholesterolemia, smoking history, being evaluated for chest pains. Stress data: Baseline EKG showed sinus rhythm with normal NC interval and QRS duration. Blood pressure at rest is 130/80 with pulse rate of 65. Patient walked on the Lesly protocol for 8 minutes and 31 seconds achieving a maximal heart rate of 148 with a blood pressure of 177/75. EKGs taken during and after exercise did not reveal any changes of ischemia. Patient did not experience any chest pain. Final impression: #1. Negative stress test. #2. Patient did not experience any chest pain #3. No arrhythmias noted. #4. Patient's exercise capacity is good [facility]
== END | disposition home or self-care (01) ==
LOC: RADNMMAIN 08:01
PROVIDERS: ATTEND Family Medicine
DX: I20.9 Angina pectoris, unspecified (principal); R07.89 Other chest pain
CPT/HCPCS: 93017; 93306; 78452; A9500

== ENCOUNTER → 2023-07-22 | Outpatient (CLI) | payer OTHER ==
--- NOTE | 2023-07-24 13:57 | MM ---
Reason for Exam: Screening (asymptomatic). Last mammogram was performed 5 year(s) and 11 month(s) ago. Patient History: Menarche at age 11. First Full-Term at age 16. Postmenopausal. 06/20/2006, Benign Excisional Biopsy on the left side. Excisional Biopsy on the Right side. Maternal grandmother had breast cancer, age 50. Mother had breast cancer, age 38. Risk Values: Catrachita 5 year model risk: 2.6%. NCI Lifetime model risk: 19.3%. Prior Study Comparison: 05/13/2006 Bilateral Diagnostic Mammogram, LOCATED WITHIN [facility]. 08/08/2017 Bilateral Screening Mammogram, LOCATED WITHIN [facility]. Tissue Density: There are scattered areas of fibroglandular density. Findings: Analyzed By CAD. There is no suspicious group of microcalcifications or new suspicious mass in either breast. Benign-appearing calcifications. There is chronic nodularity bilaterally with small benign-appearing lymph nodes seen in the upper outer quadrant. Overall Assessment: Benign, BI-RAD 2 Management: Screening Mammogram of both breasts in 1 year. . Patient should continue monthly self-breast exams. A clinical breast exam by your physician is recommended on an annual basis. This exam should not preclude additional follow-up of suspicious palpable abnormalities. Note on Catrachita scores and lifetime risk: 1. A Catrachita score greater than 3% is considered moderate risk. If this is the case, consider specialist referral to assess eligibility for a risk reducing agent. 2. If overall lifetime risk for the development of breast cancer is 20% or higher, the patient may qualify for future screening with alternating mammogram and breast MRI. Electronically signed and approved by: Justin Roberto M.D. Radiologis
== END | disposition home or self-care (01) ==
LOC: RADMAMWWP 14:18
PROVIDERS: ATTEND Family Medicine
DX: Z12.31 Encounter for screening mammogram for malignant neoplasm of breast (principal); Z80.3 Family history of malignant neoplasm of breast; Z78.0 Asymptomatic menopausal state
CPT/HCPCS: 77063; 77067

== ENCOUNTER → 2023-07-25 | Outpatient (CLI) | payer OTHER ==
--- NOTE | 2023-07-25 18:47 | CTL ---
EXAMINATION TYPE: CT Low Dose Lung DATE OF EXAM ORDERED: 07/25/2023 HISTORY . Lung cancer screening CT DLP: [address] CTDI: 2.95 mGy Automated exposure control for dose reduction was used. SCREENING VISIT: Second COMPARISON: 07/09/2022 TECHNIQUE: Low dose computed tomography scan was performed through the chest at 1 mm thick sections a nd reconstructed images in multiple planes at 1 mm and [address] DIAGNOSTIC QUALITY: Satisfactory FINDINGS: There are multiple micronodules and a calcified granuloma in the left upper lobe all of which are sta ble. No new or suspicious lung mass or nodule is seen. The lungs are clear and there is no abnormal consolidation or interstitial density. There is no mediastinal, hilar or axillary adenopathy. There is no pleural effusion, pleural thickening or pneumothorax. No focal osseous lesions are seen. Limited scans the upper abdomen reveals no gross adenopathy. IMPRESSION: 1. BI-RADS Category 2 benign.. Continue routine screening at yearly intervals. 2. No acute cardiopulmonary disease.
== END | disposition home or self-care (01) ==
LOC: RADCTMAIN 14:10
PROVIDERS: ATTEND Family Medicine
DX: Z12.2 Encounter for screening for malignant neoplasm of respiratory organs (principal); F17.210 Nicotine dependence, cigarettes, uncomplicated
CPT/HCPCS: 71271

== ENCOUNTER 2023-11-15 17:35 | Emergency (ER) | payer OTHER ==
[2023-11-15 17:55] VITALS: TEMP 98.4
--- NOTE | 2023-11-15 18:07 | ED ---
General Adult HPI - General Chief complaint: Extremity Injury, Lower Stated complaint: L foot injury Time Seen by Provider: 11/15/23 17:57 Source: patient, RN notes reviewed Mode of arrival: ambulatory Limitations: no limitations - History of Present Illness Initial comments: 53-year-old female presents to the emergency department for evaluation of left foot injury. Patient states that 6 days ago, her dog got its leash wrapped around her legs and caused her to fall. She states that her toes bent under and she has had pain in the region of the 1st toe and metatarsal following this. She states that it is painful to move and ambulate. Denies any other injury. - Related Data Home Medications Medication Instructions Recorded Confirmed Amitriptyline HCl [Elavil] 20 mg PO HS 12/27/20 03/14/21 DULoxetine HCL [Cymbalta] 60 mg PO HS 12/27/20 03/14/21 Lisdexamfetamine Dimesylate 60 mg PO DAILY 12/27/20 03/14/21 [Vyvanse] Pramipexole [Mirapex] 0.25 mg PO HS 12/27/20 03/14/21 Pregabalin [Lyrica] 150 mg PO BID 12/27/20 03/14/21 Rosuvastatin [Crestor] 10 mg PO HS 12/27/20 03/14/21 Topiramate [Topamax] 150 mg PO HS 12/27/20 03/14/21 Cyanocobalamin (Vitamin B-12) 5,000 mcg PO DAILY 02/19/21 03/14/21 [Vitamin B12] Previous Rx's Medication Instructions Recorded Acetaminophen Tab [Tylenol] 650 mg PO Q6H #30 tab 01/01/21 Omeprazole 40 mg PO DAILY #90 cap 03/15/21 Allergies Allergy/AdvReac Type Severity Reaction Status Date / Time No Known Allergies Allergy Verified 11/15/23 17:54 Review of Systems ROS Statement: Those systems with pertinent positive or pertinent negative responses have been documented in the HPI. ROS Other: All systems not noted in ROS Statement are negative. Past Medical History Past Medical History: Osteoarthritis (OA) Additional Past Medical History / Comment(s): Herniated discs with back pain, states gall stones., anemia. History of Any Multi-Drug Resistant Organisms: None Reported Past Surgical History: Breast Surgery, Section, Cholecystectomy, Orthopedic Surgery Additional Past Surgical History / Comment(s): VEIN STRIPPING,EXPLORATORY LAPAROTOMY,CARPAL TUNNEL RELEASE-RIGHT WRIST, RIGHT KNEE ARTHROSCOPY, SALVATORE BREAST TUMORS. Past Anesthesia/Blood Transfusion Reactions: No Reported Reaction Past Psychological History: Anxiety Smoking Status: Current every day smoker Past Alcohol Use History: None Reported Past Drug Use History: None Reported - Past Family History Mother Family Medical History: Cancer Additional Family Medical History / Comment(s): BREAST CANCER Sister(s) Family Medical History: Cancer Additional Family Medical History / Comment(s): BREAST CANCER Father Family Medical History: Cancer Additional Family Medical History / Comment(s): PANCREATIC CANCER / LUNG General Exam Limitations: no limitations General appearance: alert, in no apparent distress Head exam: Present: atraumatic, normocephalic, normal inspection Eye exam: Present: normal appearance, PERRL, EOMI. Absent: scleral icterus, conjunctival injection, periorbital swelling ENT exam: Present: normal exam, mucous membranes moist Extremities exam: Present: full ROM, tenderness (1st digit left foot and 1st metatarsal), normal capillary refill, pedal edema (left ). Absent: joint swelling, calf tenderness Neurological exam: Present: alert, oriented X3 Psychiatric exam: Present: normal affect, normal mood Skin exam: Present: warm, dry, normal color, abrasion (bilateral ankles). Absent: rash Course Vital Signs 11/15/23 11/15/23 17:51 19:17 Temperature 98.4 F Pulse Rate 78 75 Respiratory 16 18 Rate Blood Pressure 116/74 127/78 O2 Sat by Pulse 100 98 Oximetry Medical Decision Making - Medical Decision Making Was pt. sent in by a medical professional or institution (, PA, [employer], urgent care, hospital, or residential...) When possible be specific @ -No Did you speak to anyone other than the patient for history (EMS, parent, family, police, friend...)? What history was obtained from this source @ -No Did you review nursing and triage notes (agree or disagree)? Why? @ -I reviewed and agree with nursing and triage notes Were old charts reviewed (outside hosp., previous admission, EMS record, old EKG, old radiological studies, urgent care reports/EKG's, residential records)? Report findings @ -No old charts were reviewed Differential Diagnosis (chest pain, altered mental status, abdominal pain women, abdominal pain men, vaginal bleeding, weakness, fever, dyspnea, syncope, headache, dizziness, GI bleed, back pain, seizure, CVA, palpatations, mental health, musculoskeletal)? @ -Differential Musculoskeletal Muscular strain, contusion, ligament sprain, fracture, arthritis, septic arthritis, bursitis, cellulitis, muscle spasm, nerve compression, DVT, arterial occlusion, herpes zoster, electrolyte abnormality, tumor.... This is not meant to be in all inclusive list EKG interpreted by me (3pts min.). @ -None X-rays interpreted by me (1pt min.). @ -X-ray of the left foot shows no evidence of acute osseous abnormality CT interpreted by me (1pt min.). @ -None done U/S interpreted by me (1pt. min.). @ -None done What testing was considered but not performed or refused? (CT, X-rays, U/S, labs)? Why? @ -None What meds were considered but not given or refused? Why? @ -None Did you discuss the management of the patient with other professionals (professionals i.e. , PA, [employer], lab, RT, psych nurse, social sciences instructor, trust clerk, teacher, law enforcement officer, counseling case manager)? Give summary @ -No Was smoking cessation discussed for >3mins.? @ -No Was critical care preformed (if so, how long)? @ -No Were there social determinants of health that impacted care today? How? (Homelessness, low income, unemployed, alcoholism, drug addiction, transportation, low edu. Level, literacy, decrease access to med. care, senior living, rehab)? @ -No Was there de-escalation of care discussed even if they declined (Discuss DNR or withdrawal of care, Hospice)? DNR status @ -No What co-morbidities impacted this encounter? (DM, HTN, Smoking, COPD, CAD, Cancer, CVA, ARF, Chemo, Hep., AIDS, mental health diagnosis, sleep apnea, morbid obesity)? @ -None Was patient admitted / discharged? Hospital course, mention meds given and route, prescriptions, significant lab abnormalities, going to OR and other pertinent info. @ -Discharge. Patient presented to the emergency department for evaluation of left foot pain following a fall that occurred multiple days ago. X-rays obtained which show no evidence of acute fracture or dislocation. Patient is able to ambulate. She was instructed on symptomatic treatment at this time. She is understanding agreeable plan. Patient stable at time of discharge. Case discussed with Dr. Rockwell Undiagnosed new problem with uncertain prognosis? @ -No Drug Therapy requiring intensive monitoring for toxicity (Heparin, Nitro, Insulin, Cardizem)? @ -No Were any procedures done? @ -No Diagnosis/symptom? @ -Foot contusion Acute, or Chronic, or Acute on Chronic? @ -acute Uncomplicated (without systemic symptoms) or Complicated (systemic symptoms)? @ -uncomplicated Side effects of treatment? @ -No Exacerbation, Progression, or Severe Exacerbation? @ -No Poses a threat to life or bodily function? How? (Chest pain, [place], [place], pneumonia, PE, COPD, DKA, ARF, appy, cholecystitis, CVA, Diverticulitis, Homicidal, Suicidal, threat to staff... and all critical care pts) @ -No Disposition Clinical Impression: Foot contusion Disposition: HOME SELF-CARE Condition: Stable Instructions (If sedation given, give patient instructions): Foot Contusion (ED), Foot Sprain (ED) Additional Instructions: Please follow up with your primary care provider. Return to the emergency department for new or worsening symptoms. Is patient prescribed a controlled substance at d/c from ED?: No Referrals: Kashif Torres MD [Primary Care Provider] - 1-2 days
--- NOTE | 2023-11-15 18:32 | XR ---
EXAMINATION TYPE: XR foot complete LT DATE OF EXAM: 11/15/2023 CLINICAL HISTORY: pain TECHNIQUE: Frontal, lateral and oblique images of the left foot are obtained. COMPARISON: None. FINDINGS: There is no acute fracture/dislocation evident. The joint spaces appear within normal dobbins its. The overlying soft tissue appears unremarkable. IMPRESSION: There is no acute fracture or dislocation. ICD 10 NO FRACTURE, INITIAL EVALUATION
[2023-11-15 19:19] VITALS: BP 127/78; PULSE 75; RESP 18
== END 2023-11-15 19:19 | disposition home or self-care (01) ==
LOC: EC 17:35
DX: S90.32XA Contusion of left foot, initial encounter (principal); F17.200 Nicotine dependence, unspecified, uncomplicated; W01.0XXA Fall on same level from slipping, tripping and stumbling without subsequent striking against object, initial encounter
CPT/HCPCS: 99283

== ENCOUNTER → 2024-07-26 | Outpatient (CLI) | payer BC ==
--- NOTE | 2024-07-26 20:33 | CTL ---
EXAMINATION TYPE: CT Low Dose Lung DATE OF EXAM: 07/26/2024 5:28 PM COMPARISON: 07/25/2023 CLINICAL INDICATION: Female, 54 years old with history of Z12.2 SCRN FOR MALIG NEOPLSM F17.210 YAKOV DE P; F/u lung screening for nicotine dependence of 2ppd x32 years, current smoker., history of tobacco use. TECHNIQUE: Multiple axial non-contrast scans were obtained from approximately the lung apices through the upper abdomen. Coronal and sagittal reformatted images were obtained. Low dose technique was uti lized. MIP were created on a separate workstation and submitted for review. CT DLP: 100.3 mGycm, Automated exposure control for dose reduction was used. CT Contrast: Contrast used: None Oral contrast used: None FINDINGS: Lack of intravenous contrast and low dose technique limits the evaluation of the vascular and soft ti ssue structures. LUNGS: No evidence of pulmonary fibrosis. No evidence of focal consolidation, pneumothorax or pleural effusion. Centrilobular emphysema changes. Nodules: RUL: None. RML: None. RLL: None. RUPERTO: Calcified granuloma series 5 image 27.. LLL: None. AIRWAY: Patent and unremarkable. HEART: Size within normal limits. No significant coronary artery calcifications. MEDIASTINUM: No gross evidence of adenopathy. VASCULATURE: No aortic aneurysm. MUSCULOSKELETAL: Mild disc degeneration changes are present throughout the thoracolumbar spine. Scoli osis changes of the spine. SOFT TISSUES/LYMPH NODES: Unremarkable. LOWER NECK: No significant findings. UPPER ABDOMEN: No significant findings. IMPRESSION: 1. No clinically significant pulmonary nodules. 2. Mild emphysema. CT LUNG RAD AND CT CHEST RECOMMENDATION: Lung-Rad 2 Benign Appearance or Behavior: Continue annual sc reening with LDCT in 12 months. S Modifier (other clinically significant findings): None Recommend smoking cessation (if current smoker), or continuation of smoking cessation (if prior smoke r). Annual screening for lung cancer with low-dose computed tomography is recommended in adults ages 55 to 77 years who have a 30 pack-year smoking history and currently smoke or have quit within the pa st 15 years. Screening should be discontinued once a person has not smoked for 15 years or develops a health problem that substantially limits life expectancy or the ability or willingness to have curat omaira lung surgery. Lung rads 2021 [email or web address] [facility], , 07/26/2024 8:31 PM
== END | disposition home or self-care (01) ==
LOC: RADCTMAIN 16:47
PROVIDERS: ATTEND Family Medicine
DX: Z12.2 Encounter for screening for malignant neoplasm of respiratory organs (principal); F17.210 Nicotine dependence, cigarettes, uncomplicated; J43.2 Centrilobular emphysema
CPT/HCPCS: 71271

== ENCOUNTER 2024-10-14 15:48 | Emergency (ER) | payer BC ==
--- NOTE | 2024-10-14 16:46 | ED ---
General Adult HPI - General Chief complaint: Extremity Problem,Nontraumatic Stated complaint: Left Leg Swelling Time Seen by Provider: 10/14/24 16:14 Source: patient, RN notes reviewed Mode of arrival: ambulatory Limitations: no limitations - History of Present Illness Initial comments: This is a 54-year-old female smoker who presents from PCP for LLE pain/swelling x 6 days. Patient states symptoms started suddenly without recent trauma. Denies recent travel or surgery. Also endorses sudden onset dyspnea and left parasternal pain with inspiration for the past 4 days. Denies history of blood clots. Denies radiating pain, diaphoresis, dizziness/lightheadedness, fever, chills, hemoptysis, abdominal pain, N/V/D. Onset/Timin -: days(s) Location: chest, left, lower extremity Radiation: non-radiation Quality: sharp Consistency: intermittent Associated Symptoms: chest pain, shortness of breath - Related Data Home Medications Medication Instructions Recorded Confirmed Amitriptyline HCl [Elavil] 20 mg PO HS 12/27/20 03/14/21 DULoxetine HCL [Cymbalta] 60 mg PO HS 12/27/20 03/14/21 Lisdexamfetamine Dimesylate 60 mg PO DAILY 12/27/20 03/14/21 [Vyvanse] Pramipexole [Mirapex] 0.25 mg PO HS 12/27/20 03/14/21 Pregabalin [Lyrica] 150 mg PO BID 12/27/20 03/14/21 Rosuvastatin [Crestor] 10 mg PO HS 12/27/20 03/14/21 Topiramate [Topamax] 150 mg PO HS 12/27/20 03/14/21 Cyanocobalamin (Vitamin B-12) 5,000 mcg PO DAILY 02/19/21 03/14/21 [Vitamin B12] Previous Rx's Medication Instructions Recorded Acetaminophen Tab [Tylenol] 650 mg PO Q6H #30 tab 01/01/21 Omeprazole 40 mg PO DAILY #90 cap 03/15/21 Allergies Allergy/AdvReac Type Severity Reaction Status Date / Time No Known Allergies Allergy Verified 10/14/24 16:08 Review of Systems ROS Statement: Those systems with pertinent positive or pertinent negative responses have been documented in the HPI. ROS Other: All systems not noted in ROS Statement are negative. Past Medical History Past Medical History: Osteoarthritis (OA) Additional Past Medical History / Comment(s): Herniated discs with back pain, states gall stones., anemia. History of Any Multi-Drug Resistant Organisms: None Reported Past Surgical History: Breast Surgery, Section, Cholecystectomy, Orthopedic Surgery Additional Past Surgical History / Comment(s): VEIN STRIPPING,EXPLORATORY LAPAROTOMY,CARPAL TUNNEL RELEASE-RIGHT WRIST, RIGHT KNEE ARTHROSCOPY, SALVATORE BREAST TUMORS. Past Anesthesia/Blood Transfusion Reactions: No Reported Reaction Past Psychological History: Anxiety Smoking Status: Current every day smoker Past Alcohol Use History: None Reported Past Drug Use History: None Reported - Past Family History Mother Family Medical History: Cancer Additional Family Medical History / Comment(s): BREAST CANCER Sister(s) Family Medical History: Cancer Additional Family Medical History / Comment(s): BREAST CANCER Father Family Medical History: Cancer Additional Family Medical History / Comment(s): PANCREATIC CANCER / LUNG General Exam Limitations: no limitations General appearance: alert, in no apparent distress Head exam: Present: atraumatic, normocephalic, normal inspection Eye exam: Present: normal appearance, PERRL, EOMI. Absent: scleral icterus, c onjunctival injection, periorbital swelling ENT exam: Present: normal exam, mucous membranes moist Neck exam: Present: normal inspection. Absent: tenderness, meningismus, lymphadenopathy Respiratory exam: Present: normal lung sounds bilaterally. Absent: respiratory distress, wheezes, rales, rhonchi, stridor, accessory muscle use, decreased breath sounds, prolonged expiratory Cardiovascular Exam: Present: regular rate, normal rhythm, normal heart sounds. Absent: systolic murmur, diastolic murmur, rubs, gallop, clicks GI/Abdominal exam: Present: soft, normal bowel sounds. Absent: distended, tenderness, guarding, rebound, rigid Extremities exam: Present: full ROM, normal capillary refill, pedal edema (Positive BLE edema with LLE worse than rightpitting noted.), calf tenderness (Positive left Homans' sign and popliteal tenderness), other (Bilateral posterior tibialis pulse +2). Absent: joint swelling Back exam: Present: normal inspection Neurological exam: Present: alert, oriented X3, CN II-XII intact Psychiatric exam: Present: normal affect, normal mood Skin exam: Present: warm, dry, intact, normal color. Absent: rash Course Vital Signs 10/14/24 16:09 Temperature 98 F Pulse Rate 70 Respiratory 16 Rate Blood Pressure 110/74 O2 Sat by Pulse 96 Oximetry Medical Decision Making - Medical Decision Making Was pt. sent in by a medical professional or institution (, PA, HABITAT MANAGEMENT COORDINATOR, urgent care, hospital, or alf...) When possible be specific @ -[No] Did you speak to anyone other than the patient for history (EMS, parent, family, police, friend...)? What history was obtained from this source @ -[No] Did you review nursing and triage notes (agree or disagree)? Why? @ -[I reviewed and agree with nursing and triage notes] Were old charts reviewed (outside hosp., previous admission, EMS record, old EKG, old radiological studies, urgent care reports/EKG's, alf records)? Report findings @ -[No old charts were reviewed] Differential Diagnosis (chest pain, altered mental status, abdominal pain women, abdominal pain men, vaginal bleeding, weakness, fever, dyspnea, syncope, headache, dizziness, GI bleed, back pain, seizure, CVA, palpatations, mental health, musculoskeletal)? @ -Differential Musculoskeletal Muscular strain, contusion, ligament sprain, fracture, arthritis, septic arthritis, bursitis, cellulitis, muscle spasm, nerve compression, DVT, arterial occlusion, herpes zoster, electrolyte abnormality, tumor.... This is not meant to be in all inclusive list differential Dyspnea: Coronary syndrome, arrhythmia, tamponade, asthma, COPD, pulmonary embolism, pneumonia, pneumothorax, pulmonary effusion, anaphylaxis, diabetic ketoacidosis, flailed chest, pulmonary contusion, diaphragmatic rupture, anemia, neuromuscular, this is not meant to be an all-inclusive list. EKG interpreted by me (3pts min.). @ -Sinus rhythm without ST deviation or T wave inversion. Ventricular rate 66 bpm, MARQUIS 142 ms, QRS 94 ms, QTc 414 ms. X-rays interpreted by me (1pt min.). @ -[None done] CT interpreted by me (1pt min.). @ -[None done] U/S interpreted by me (1pt. min.). @ -[None done] What testing was considered but not performed or refused? (CT, X-rays, U/S, labs)? Why? @ -[None] What meds were considered but not given or refused? Why? @ -[None] Did you discuss the management of the patient with other professionals (professionals i.e. , PA, HABITAT MANAGEMENT COORDINATOR, lab, RT, psych nurse, social worker delinquency prevention, wanigan clerk, teacher, fisheries officer, pillowcase maker)? Give summary @ -[No] Was smoking cessation discussed for >3mins.? @ -[No] Was critical care preformed (if so, how long)? @ -[No] Were there social determinants of health that impacted care today? How? (Homelessness, low income, unemployed, alcoholism, drug addiction, transportation, low edu. Level, literacy, decrease access to med. care, senior care, rehab)? @ -[No] Was there de-escalation of care discussed even if they declined (Discuss DNR or withdrawal of care, Hospice)? DNR status @ -[No] What co-morbidities impacted this encounter? (DM, HTN, Smoking, COPD, CAD, Cancer, CVA, ARF, Chemo, Hep., AIDS, mental health diagnosis, sleep apnea, morbid obesity)? @ -[None] Was patient admitted / discharged? Hospital course, mention meds given and route, prescriptions, significant lab abnormalities, going to OR and other pertinent info. @ -[hospital course] Undiagnosed new problem with uncertain prognosis? @ -[No] Drug Therapy requiring intensive monitoring for toxicity (Heparin, Nitro, Insulin, Cardizem)? @ -[No] Were any procedures done? @ -[No] Diagnosis/symptom? @ -[default] Acute, or Chronic, or Acute on Chronic? @ -Acute Uncomplicated (without systemic symptoms) or Complicated (systemic symptoms)? @ -Complicated Side effects of treatment? @ -[No] Exacerbation, Progression, or Severe Exacerbation? @ -[No] Poses a threat to life or bodily function? How? (Chest pain, [place], AL, pneumonia, PE, COPD, DKA, ARF, appy, cholecystitis, CVA, Diverticulitis, Homicidal, Suicidal, threat to staff... and all critical care pts) @ -[No] - Lab Data Result diagrams: 10/14/24 16:43 10/14/24 16:43 Lab Results 10/14/24 10/14/24 10/14/24 Range/Units 16:43 16:43 16:43 WBC 7.19 (4.50-10.00) 10*3/uL RBC 3.82 L (4.10-5.20) 10*6/uL Hgb 11.4 L (12.0-15.0) g/dL Hct 35.5 L (37.2-46.3) % MCV 92.9 (80.0-97.0) fL MCH 29.8 (27.0-32.0) pg MCHC 32.1 (32.0-37.0) g/dL Plt Count 206 (140-440) 10*3/uL MPV 9.8 (9.5-12.2) fL Immature Gran % (Auto) 0.3 % Neutrophils % 55.3 % Lymphocytes % 35.7 % Monocytes % 6.8 % Eosinophils % 1.3 % Basophils % 0.6 % Immature Gran # 0.02 (0.00-0.04) 10*3/uL Neutrophils # 3.98 (1.80-7.70) 10*3/uL Lymphocytes # 2.57 (0.90-5.00) 10*3/uL Monocytes # 0.49 (0.20-1.00) 10*3/uL Eosinophils # 0.09 (0.04-0.35) 10*3/uL Basophils # 0.04 (0.00-0.10) 10*3/uL PT 10.0 (10.0-12.5) sec INR 0.9 (<1.2) APTT 26.2 (22.0-30.0) sec D-Dimer 0.45 (<0.60) mg/L FEU Sodium 140 (137-145) mmol/L Potassium 4.0 (3.5-5.1) mmol/L Chloride 112 H (98-107) mmol/L Carbon Dioxide 21 L (22-30) mmol/L Anion Gap 7 mmol/L BUN 10 (7-17) mg/dL Creatinine 0.87 (0.52-1.04) mg/dL Est GFR (CKD-EPI)AfAm 88 (>60 ml/min/1.73 sqM) Est GFR (CKD-EPI)NonAf 76 (>60 ml/min/1.73 sqM) Glucose 86 (74-99) mg/dL Calcium 9.2 (8.4-10.2) mg/dL Magnesium 2.2 (1.6-2.3) mg/dL Total Bilirubin 0.7 (0.2-1.3) mg/dL AST 20 (14-36) U/L ALT 13 (4-34) U/L Alkaline Phosphatase 99 (38-126) U/L Troponin I (0.000-0.034) ng/mL NT-Pro-B Natriuret Pep 34 pg/mL Total Protein 6.0 L (6.3-8.2) g/dL Albumin 3.7 (3.5-5.0) g/dL 10/14/24 Range/Units 16:43 WBC (4.50-10.00) 10*3/uL RBC (4.10-5.20) 10*6/uL Hgb (12.0-15.0) g/dL Hct (37.2-46.3) % MCV (80.0-97.0) fL MCH (27.0-32.0) pg MCHC (32.0-37.0) g/dL Plt Count (140-440) 10*3/uL MPV (9.5-12.2) fL Immature Gran % (Auto) % Neutrophils % % Lymphocytes % % Monocytes % % Eosinophils % % Basophils % % Immature Gran # (0.00-0.04) 10*3/uL Neutrophils # (1.80-7.70) 10*3/uL Lymphocytes # (0.90-5.00) 10*3/uL Monocytes # (0.20-1.00) 10*3/uL Eosinophils # (0.04-0.35) 10*3/uL Basophils # (0.00-0.10) 10*3/uL PT (10.0-12.5) sec INR (<1.2) APTT (22.0-30.0) sec D-Dimer (<0.60) mg/L FEU Sodium (137-145) mmol/L Potassium (3.5-5.1) mmol/L Chloride (98-107) mmol/L Carbon Dioxide (22-30) mmol/L Anion Gap mmol/L BUN (7-17) mg/dL Creatinine (0.52-1.04) mg/dL Est GFR (CKD-EPI)AfAm (>60 ml/min/1.73 sqM) Est GFR (CKD-EPI)NonAf (>60 ml/min/1.73 sqM) Glucose (74-99) mg/dL Calcium (8.4-10.2) mg/dL Magnesium (1.6-2.3) mg/dL Total Bilirubin (0.2-1.3) mg/dL AST (14-36) U/L ALT (4-34) U/L Alkaline Phosphatase (38-126) U/L Troponin I <0.012 (0.000-0.034) ng/mL NT-Pro-B Natriuret Pep pg/mL Total Protein (6.3-8.2) g/dL Albumin (3.5-5.0) g/dL Disposition Clinical Impression: Edema of left lower leg, Pleuritic chest pain Disposition: HOME SELF-CARE Condition: Fair Instructions (If sedation given, give patient instructions): Leg Edema (ED), Pleurisy (ED) Additional Instructions: Alternate Tylenol/Motrin every 4 hours for pain. Compression stocking and elevate leg during the day. Follow-up with primary care for any ongoing symptoms. Is patient prescribed a controlled substance at d/c from ED?: No Referrals: Jillian Torres DO [Primary Care Provider] - 1-2 days Time of Disposition: 18:14
[2024-10-14 17:05] LABS: Basophils # (A) 0.04 10*3/uL (0.00-0.10); Basophils % (A) 0.6 %; Eosinophils # (A) 0.09 10*3/uL (0.04-0.35); Eosinophils % (A) 1.3 %; HCT 35.5 % (37.2-46.3); HGB 11.4 g/dL (12.0-15.0); Lymphocytes # (A) 2.57 10*3/uL (0.90-5.00); Lymphocytes % (A) 35.7 %; MCH 29.8 pg (27.0-32.0); MCHC 32.1 g/dL (32.0-37.0); MCV 92.9 fL (80.0-97.0); Mean Platelet Volume 9.8 fL (9.5-12.2); Monocytes # (A) 0.49 10*3/uL (0.20-1.00); Monocytes % (A) 6.8 %; Neutrophils # (A) 3.98 10*3/uL (1.80-7.70); Neutrophils % (A) 55.3 %; Platelet Count 206 10*3/uL (140-440); RBC 3.82 10*6/uL (4.10-5.20); RDW 14.1 % (11.5-14.5); WBC 7.19 10*3/uL (4.50-10.00)
--- NOTE | 2024-10-14 17:23 | XR ---
EXAMINATION TYPE: XR chest 2V DATE OF EXAM: 10/14/2024 5:06 PM COMPARISON: Chest radiographs from 01/05/2021 CLINICAL INDICATION: Female, 54 years old with history of Chest Pain; [facility] TECHNIQUE: XR chest 2V Frontal and lateral views of the chest. FINDINGS: Lungs/Pleura: There is no evidence of pleural effusion, focal consolidation, or pneumothorax. Pulmonary vascularity: Unremarkable. Heart/mediastinum: Cardiomediastinal silhouette is unremarkable. Musculoskeletal: No acute osseous pathology. Other findings: None IMPRESSION: No acute cardiopulmonary disease/process. [facility], , 10/14/2024 5:20 PM
[2024-10-14 17:27] LABS: INR 0.9 (<1.2); Partial Thromboplastin Time 26.2 sec (22.0-30.0)
[2024-10-14 17:43] LABS: ALT 13 U/L (4-34); AST 20 U/L (14-36); African American GFR (CKD) 88 (>60 ml/min/1.73 sqM); Albumin 3.7 g/dL (3.5-5.0); Alkaline Phosphatase 99 U/L (38-126); Anion Gap 7 mmol/L; Blood Urea Nitrogen 10 mg/dL (7-17); Calcium 9.2 mg/dL (8.4-10.2); Carbon Dioxide 21 mmol/L (22-30); Chloride 112 mmol/L (98-107); Glucose 86 mg/dL (74-99); Magnesium 2.2 mg/dL (1.6-2.3); Non-African American GFR(CKD) 76 (>60 ml/min/1.73 sqM); Sodium 140 mmol/L (137-145); Total Bilirubin 0.7 mg/dL (0.2-1.3)
[2024-10-14 17:52] LABS: NT-Pro-B-Type Natriuretic Pept 34 pg/mL
--- NOTE | 2024-10-14 17:57 | US ---
EXAMINATION TYPE: US venous doppler duplex LE LT DATE OF EXAM: 10/14/2024 5:42 PM COMPARISON: NONE CLINICAL INDICATION: Female, 54 years old with history of Sudden onset LLE edema and pain; patient st ates leg pain and swelling. no hx dvt. hx vein stripping. not on thinners, Pain TECHNIQUE: The lower extremity deep venous system is examined utilizing real time linear array sonog rashad with graded compression, color doppler sonography, and spectral doppler. SIDE PERFORMED: Left FINDINGS: VESSELS IMAGED: Common Femoral Vein Deep Femoral Vein Greater Saphenous Vein * Femoral Vein Popliteal Vein Small Saphenous Vein * Proximal Calf Veins (* superficial vessels) Left Leg: Appears negative for dvt, Color Doppler imaging shows patency of the vessels. Spectral wav eforms are within normal limits. IMPRESSION: No ultrasound evidence for deep venous thrombosis. [facility], , 10/14/2024 5:55 PM
[2024-10-14 18:44] VITALS: BP 110/86; PULSE 63; RESP 18; TEMP 98.1
== END 2024-10-14 18:44 | disposition home or self-care (01) ==
LOC: EC 15:48
DX: R60.9 Edema, unspecified (principal); R07.81 Pleurodynia; F17.200 Nicotine dependence, unspecified, uncomplicated
CPT/HCPCS: 36415; 71046; 80053; 83735; 83880; 84484; 85025; 85379; 85610; 85730; 93005; 99284